=== PATIENT | male | born 1950 | race Caucasian/White ===

== ENCOUNTER 2018-08-23 05:51 | Day surgery (SDC) | payer MEDICARE, OTHER ==
[2018-08-23] MEDS ORDERED: Ketamine HCl 50 MG/ML IV ONE (05:52)
[2018-08-23] MEDS ORDERED: DIPRIVAN 200 MG/20 ML IV ONE (05:52)
[2018-08-23] MEDS ORDERED: Lactated Ringers 1,000 ML IV SCH (06:00)
[2018-08-23 10:02] VITALS: BP 124/84; PULSE 65; O2SAT 95
--- NOTE | 2018-08-23 10:09 | OP ---
SURGERY DATE/TIME: 08/23/201810 PREOPERATIVE DIAGNOSIS: Gastroesophageal reflux. POSTOPERATIVE DIAGNOSES: 1) Hiatal hernia. 2) Mild gastritis. PROCEDURE: Esophagogastroduodenoscopy with biopsy. SURGEON: Dr. Salazar. ANESTHESIA: MAC. Medications were given by the anesthesia department. BRIEF HISTORY: The patient is a 67 year old white male patient with a long history of reflux. The patient was felt the need to have endoscopic evaluation. He was appraised of the risks of the procedure including the risk of perforation, phlebitis, untoward reaction to medication, bleeding and missed lesions. The patient verbalized his understanding and desired to have the procedure performed. DESCRIPTION OF PROCEDURE: The patient was given the medications by the anesthesia department. He had continuous pulse oximetry, ECG monitoring, intermittent blood pressure monitoring and tidal CO2 monitoring during the examination. He was placed in the left lateral decubitus position. A bite block was placed and the flexible Olympus gastroscope was used to intubate the oropharynx. A view of the larynx was obtained and was normal. The scope was easily passed in the esophagus where there appeared to be a small hiatal hernia in the distal esophagus. The stomach was entered and the gastric green was suctioned dry and the stomach was re-insufflated. The gastric rugal folds distended nicely with insufflation of air. The scope was passed along the greater curvature of the stomach to the antrum. The pylorus was encountered and intubated. Duodenum inspected and found to be normal. The scope withdrawn towards the stomach. Again, a retroflex view was obtained of the lesser curvature, fundus and cardia regions of the stomach and there again was noted the hiatal hernia. The scope was then redirected towards the gastric antrum and biopsies were obtained to rule out the presence of Helicobacter pylori-type organisms. The scope was then removed from the patient who tolerated the procedure well and was sent back to outpatient recovery in good condition.
== END 2018-08-23 09:50 | disposition home or self-care (01) ==
LOC: SDC 05:51
PROVIDERS: ATTEND Family Medicine
DX: K44.9 Diaphragmatic hernia without obstruction or gangrene (principal); K29.70 Gastritis, unspecified, without bleeding; K21.9 Gastro-esophageal reflux disease without esophagitis; I10 Essential (primary) hypertension
CPT/HCPCS: 88305; 94250; J2704

== ENCOUNTER 2019-01-22 13:35 | Emergency (ER) | payer MEDICARE, OTHER ==
[2019-01-22] MEDS ORDERED: Sodium Chloride 0.9% 1000 ML 1,000 ML IV STA ×2 (14:07→15:01)
[2019-01-22] MEDS ORDERED: Zofran 4 MG/2 ML VIAL IV ONE (14:07)
--- NOTE | 2019-01-22 14:18 | ERPHSYRPT ---
- History of Present Illness Time Seen by Provider: 01/22/19 14:16 Source: patient Exam Limitations: no limitations Patient Subjective Stated Complaint: "I have been vomitng and having diarrhea since about 0700 this am". Triage Nursing Assessment: Pt presents aaox3, color somewhat pale, resp easy, lungs clear, c/o vomiting and diarrhea with several episodes each since 0700 this am. Also c/o mid abd pain/cramping. Bowel sounds auscultated, no edema to extremeties. Physician History: "I have been vomitng and having diarrhea since about 0700 this am". Timing/Duration: today Severity: moderate Associated Symptoms: nausea, vomiting, weakness Allergies/Adverse Reactions: acetaminophen [From [place]] Allergy (Verified 08/23/18 06:17) atovaquone [From [place]] Allergy (Verified 08/23/18 06:17) Bisphosphonates Allergy (Verified 08/23/18 06:17) codeine Allergy (Verified 08/23/18 06:17) hydrocodone [From [place]] Allergy (Verified 08/23/18 06:17) proguanil [From [place]] Allergy (Verified 08/23/18 06:17) Home Medications: Hydroxychloroquine Sulfate [Plaquenil] 200 mg DAILY 01/25/14 [History] Omeprazole [Prilosec] 20 mg DAILY 01/25/14 [History] Allopurinol 100 mg [Zyloprim 100 mg] 100 mg PO BID 08/22/18 [History] Aspirin EC 81 mg [Ecotrin 81 mg] 81 mg PO DAILY 08/22/18 [History] Atorvastatin Calcium [Lipitor 40Mg] 20 mg PO DAILY 08/22/18 [History] Carvedilol 3.125 mg [Coreg 3.125 MG] 3.125 mg PO BID 08/22/18 [History] Levothyroxine Sodium 100 Mcg [Synthroid 100 Mcg] 100 mcg PO DAILY 08/22/18 [History] Losartan/Hydrochlorothiazide [Losartan-Hctz 50-12.5 mg Tab] 1 each PO DAILY [History] Hx Influenza Vaccination/Date Given: Yes Hx Pneumococcal Vaccination/Date Given: Yes (UNKNOWN) - Review of Systems Constitutional: Weakness, No Fever, No Chills Eyes: No Symptoms Ears, Nose, & Throat: No Symptoms Respiratory: No Cough, No Dyspnea Cardiac: No Chest Pain, No Edema, No Syncope Abdominal/Gastrointestinal: Nausea, Vomiting, Diarrhea, No Abdominal Pain Genitourinary Symptoms: No Dysuria Musculoskeletal: No Back Pain, No Neck Pain Skin: No Rash Neurological: No Dizziness, No Focal Weakness, No Sensory Changes Psychological: No Symptoms Endocrine: No Symptoms All Other Systems: Reviewed and Negative - Past Medical History Pertinent Past Medical History: Yes Neurological History: No Pertinent History ENT History: No Pertinent History Cardiac History: Hypertension Respiratory History: No Pertinent History Endocrine Medical History: Hypothyroidism Musculoskeletal History: Arthritis, Other GI Medical History: GERD History: No Pertinent History Psycho-Social History: No Pertinent History Male Reproductive Disorders: No Pertinent History Other Medical History: CONECTIVE TISSUE DISEASE,gout, - Past Surgical History Past Surgical History: Yes Neuro Surgical History: No Pertinent History Cardiac: No Pertinent History Respiratory: No Pertinent History Gastrointestinal: Cholecystectomy, Hernia Repair Genitourinary: No Pertinent History Musculoskeletal: Orthopedic Surgery Male Surgical History: No Pertinent History Other Surgical History: c3 neck surgery - Social History Smoking Status: Never smoker Exposure to second hand smoke: No Drug Use: none Patient Lives Alone: No - Nursing Vital Signs Nursing Vital Signs: Initial Vital Signs Temperature 98.7 F 01/22/19 13:46 Pulse Rate 100 H 01/22/19 13:46 Respiratory Rate 18 01/22/19 13:46 Blood Pressure 128/91 01/22/19 13:46 O2 Sat by Pulse Oximetry 98 01/22/19 13:46 Pain Scale Pain Intensity 5 - Physical Exam General Appearance: mild distress, alert Eye Exam: PERRL/EOMI, eyes nml inspection Ears, Nose, Throat Exam: normal ENT inspection, TMs normal, pharynx normal, moist mucous membranes Neck Exam: normal inspection, non-tender, supple, full range of motion Respiratory Exam: normal breath sounds, lungs clear, No respiratory distress Cardiovascular Exam: regular rate/rhythm, normal heart sounds, normal peripheral pulses Gastrointestinal/Abdomen Exam: soft, normal bowel sounds, No tenderness, No mass Back Exam: normal inspection, normal range of motion, No CVA tenderness, No vertebral tenderness Extremity Exam: normal inspection, normal range of motion, pelvis stable Neurologic Exam: alert, oriented x 3, cooperative, normal mood/affect, nml cerebellar function, nml station & gait, sensation nml, No motor deficits Skin Exam: normal color, warm, dry, No rash Lymphatic Exam: No adenopathy SpO2: 98 - Course Nursing assessment & vital signs reviewed: Yes Ordered Tests: Active Orders 24 hr Category Date Time Status AMYLASE Stat Lab 01/22/19 14:21 Completed CBC W DIFF Stat Lab 01/22/19 14:21 Completed CMP Stat Lab 01/22/19 14:21 Completed LIPASE Stat Lab 01/22/19 14:21 Completed Lactic Acid Stat Lab 01/22/19 14:07 Completed UA W/RFX UR CULTURE Stat Lab 01/22/19 15:39 Completed Medication Summary Discontinued Medications Generic Name Dose Route Start Last Admin Trade Name Freq PRN Reason Stop Dose Admin Sodium Chloride 1,000 mls @ 999 mls/hr 01/22/19 14:07 01/22/19 15:40 Sodium Chloride 0.9% 1000 Ml IV 01/22/19 15:07 Infused .Q1H1M STA Infusion Sodium Chloride Confirm 01/22/19 14:26 Sodium Chloride 0.9% 1000 Ml Administered 01/22/19 14:27 Dose 1,000 mls @ ud .ROUTE .STK-MED ONE Sodium Chloride 1,000 mls @ 999 mls/hr 01/22/19 15:01 01/22/19 15:29 Sodium Chloride 0.9% 1000 Ml IV 01/22/19 16:01 999 mls/hr .Q1H1M STA Administration Sodium Chloride Confirm 01/22/19 15:28 Sodium Chloride 0.9% 1000 Ml Administered 01/22/19 15:29 Dose 1,000 mls @ ud .ROUTE .STK-MED ONE Ondansetron HCl 4 mg 01/22/19 14:07 01/22/19 14:30 Zofran 4 Mg/2 Ml Vial IV 01/22/19 14:08 4 mg STAT ONE Administration Ondansetron HCl Confirm 01/22/19 14:25 Zofran 4 Mg/2 Ml Vial Administered 01/22/19 14:26 Dose 4 mg .ROUTE .STK-MED ONE Lab/Rad Data: Laboratory Result Diagrams 01/22/19 14:21 01/22/19 14:21 Laboratory Results 01/22/19 01/22/19 01/22/19 Range/Units 15:39 14:21 14:21 WBC 11.0 H (4.0-10.5) K/mm3 RBC 5.78 H (4.1-5.6) M/mm3 Hgb 17.7 (12.5-18.0) gm/dl Hct 51.1 H (42-50) % MCV 88.4 (78-100) fl MCH 30.6 (26-32) pg MCHC 34.6 (32-36) g/dl RDW 15.3 H (11.5-14.0) % Plt Count 213 (150-450) K/mm3 MPV 11.6 H (6-9.5) fl Gran % 88.6 H (36.0-66.0) % Eos # (Auto) 0.10 (0-0.5) Absolute Lymphs (auto) 0.63 L (1.0-4.6) Absolute Monos (auto) 0.52 (0.0-1.3) Lymphocytes % 5.7 L (24.0-44.0) % Monocytes % 4.7 (0.0-12.0) % Eosinophils % 0.9 (0.00-5.0) % Basophils % 0.1 (0.0-0.4) % Absolute Granulocytes 9.74 H (1.4-6.9) Basophils # 0.01 (0-0.4) Sodium 140 (137-145) mmol/L Potassium 5.0 (3.5-5.1) mmol/L Chloride 105 (98-107) mmol/L Carbon Dioxide 26 (22-30) mmol/L Anion Gap 14.0 (5-15) MEQ/L BUN 24 H (9-20) mg/dL Creatinine 1.17 (0.66-1.25) mg/dL Estimated GFR > 60.0 ML/MIN Glucose 116 H (74-106) mg/dL Lactic Acid (0.4-2.0) Calcium 9.8 (8.4-10.2) mg/dL Total Bilirubin 1.50 H (0.2-1.3) mg/dL AST 40 (17-59) U/L ALT 51 H (0-50) U/L Alkaline Phosphatase 140 H (38-126) U/L Serum Total Protein 8.5 H (6.3-8.2) g/dL Albumin 4.8 (3.5-5.0) g/dL Amylase 158 H (30-110) U/L Lipase 130 (23-300) U/L Urine Color YELLOW (YELLOW) Urine Appearance CLEAR (CLEAR) Urine pH 5.0 (5-6) Ur Specific [place] 1.017 (1.005-1.025) Urine Protein NEGATIVE (Negative) Urine Ketones TRACE (NEGATIVE) Urine Blood NEGATIVE (0-5) Guillaume/ul Urine Nitrite NEGATIVE (NEGATIVE) Urine Bilirubin NEGATIVE (NEGATIVE) Urine Urobilinogen NEGATIVE (0-1) mg/dL Ur Leukocyte Esterase NEGATIVE (NEGATIVE) Urine WBC (Auto) NONE (0-5) /HPF Urine RBC (Auto) NONE (0-2) /HPF Urine Mucus (Auto) SLIGHT (NEGATIVE) /HPF Urine Culture Reflexed NO (NO) Urine Glucose NEGATIVE (NEGATIVE) mg/dL 01/22/19 Range/Units 14:07 WBC (4.0-10.5) K/mm3 RBC (4.1-5.6) M/mm3 Hgb (12.5-18.0) gm/dl Hct (42-50) % MCV (78-100) fl MCH (26-32) pg MCHC (32-36) g/dl RDW (11.5-14.0) % Plt Count (150-450) K/mm3 MPV (6-9.5) fl Gran % (36.0-66.0) % Eos # (Auto) (0-0.5) Absolute Lymphs (auto) (1.0-4.6) Absolute Monos (auto) (0.0-1.3) Lymphocytes % (24.0-44.0) % Monocytes % (0.0-12.0) % Eosinophils % (0.00-5.0) % Basophils % (0.0-0.4) % Absolute Granulocytes (1.4-6.9) Basophils # (0-0.4) Sodium (137-145) mmol/L Potassium (3.5-5.1) mmol/L Chloride (98-107) mmol/L Carbon Dioxide (22-30) mmol/L Anion Gap (5-15) MEQ/L BUN (9-20) mg/dL Creatinine (0.66-1.25) mg/dL Estimated GFR ML/MIN Glucose (74-106) mg/dL Lactic Acid 1.3 (0.4-2.0) Calcium (8.4-10.2) mg/dL Total Bilirubin (0.2-1.3) mg/dL AST (17-59) U/L ALT (0-50) U/L Alkaline Phosphatase (38-126) U/L Serum Total Protein (6.3-8.2) g/dL Albumin (3.5-5.0) g/dL Amylase (30-110) U/L Lipase (23-300) U/L Urine Color (YELLOW) Urine Appearance (CLEAR) Urine pH (5-6) Ur Specific [place] (1.005-1.025) Urine Protein (Negative) Urine Ketones (NEGATIVE) Urine Blood (0-5) Guillaume/ul Urine Nitrite (NEGATIVE) Urine Bilirubin (NEGATIVE) Urine Urobilinogen (0-1) mg/dL Ur Leukocyte Esterase (NEGATIVE) Urine WBC (Auto) (0-5) /HPF Urine RBC (Auto) (0-2) /HPF Urine Mucus (Auto) (NEGATIVE) /HPF Urine Culture Reflexed (NO) Urine Glucose (NEGATIVE) mg/dL - Progress Progress: improved, pain not gone completely Counseled pt/family regarding: lab results, diagnosis, need for follow-up - Departure Departure Disposition: Home Clinical Impression: Gastroenteritis and colitis, viral Condition: Stable Critical Care Time: No Referrals: NICHOLAS GUERRA [Primary Care Provider] - Instructions: Viral Gastroenteritis, Adult (DC) Additional Instructions: VOMITING AND DIARRHEA 1. Take only small amounts of clear, cool liquids at frequent intervals as tolerated for the next 24-48 hours. Avoid milk products and orange juice. Clear liquids are those liquids which you can see through. 2. Pedialyte and popsicles are recommended clear liquids. 3. If the condition worsens you should contact your family physician or return to the emergency department for re-evaluation. Please follow the instructions given to you. Please take your medication as prescribed if given. If symptoms recur or get worse, come back to the emergency room if you cannot reach your primary care physician, or call your primary care physician for an appointment. Again if your symptoms get worse, come back to the emergency room. Thanks for visiting emergency room, and let us take care of you.
[2019-01-22 14:25] LABS: BASOPHIL % 0.1 % (0.0-0.4); Basophil (Absolute #) 0.01 (0-0.4); Eosinophil % 0.9 % (0.00-5.0); Granulocyte Absolute (ANC) 9.74 (1.4-6.9); Granulocytes % 88.6 % (36.0-66.0); Hematocrit 51.1 % (42-50); Hemoglobin 17.7 gm/dl (12.5-18.0); Lymphocyte (Absolute #) 0.63 (1.0-4.6); Lymphocytes % 5.7 % (24.0-44.0); Mean Cell Volume 88.4 fl (78-100); Mean Corpuscular Hemoglobin 30.6 pg (26-32); Mean Corpuscular Hgb Concent. 34.6 g/dl (32-36); Mean Platelet Volume 11.6 fl (6-9.5); Monocyte (Absolute #) 0.52 (0.0-1.3); Monocytes % 4.7 % (0.0-12.0); Platelet Count 213 K/mm3 (150-450); Red Blood Count 5.78 M/mm3 (4.1-5.6); Red Cell Distribution Width 15.3 % (11.5-14.0)
[2019-01-22] MEDS ORDERED: Zofran 4 MG/2 ML VIAL ONE (14:25)
[2019-01-22] MEDS ORDERED: Sodium Chloride 0.9% 1000 ML 1,000 ML ONE ×2 (14:26→15:28)
[2019-01-22 14:39] LABS: ALBUMIN 4.8 g/dL (3.5-5.0); ALKALINE PHOSPHATASE 140 U/L (38-126); AMYLASE 158 U/L (30-110); BLOOD UREA NITROGEN 24 mg/dL (9-20); CHLORIDE 105 mmol/L (98-107); Calcium 9.8 mg/dL (8.4-10.2); Carbon Dioxide 26 mmol/L (22-30); Creatinine 1 1.17 mg/dL (0.66-1.25); Glucose 116 mg/dL (74-106); LIPASE 130 U/L (23-300); SGOT/AST 40 U/L (17-59); SGPT/ALT 51 U/L (0-50); SODIUM 140 mmol/L (137-145); Total Protein 8.5 g/dL (6.3-8.2)
[2019-01-22 15:59] LABS: Appearance CLEAR (CLEAR); Bilirubin NEGATIVE (NEGATIVE); Blood NEGATIVE Ery/ul (0-5); Glucose NEGATIVE (NEGATIVE); Ketones TRACE (NEGATIVE); Leukocyte Esterase NEGATIVE (NEGATIVE); Mucus SLIGHT /HPF (NEGATIVE); Nitrite NEGATIVE (NEGATIVE); Protein,Urine Dip NEGATIVE (Negative); Specific Gravity 1.017 (1.005-1.025); Urobilinogen NEGATIVE mg/dL (0-1)
[2019-01-22 16:42] VITALS: BP 111/80; PULSE 92; O2SAT 99
== END 2019-01-22 16:47 | disposition home or self-care (01) ==
LOC: ED 13:35
DX: A08.4 Viral intestinal infection, unspecified (principal); Z79.899 Other long term (current) drug therapy; E03.9 Hypothyroidism, unspecified; M19.90 Unspecified osteoarthritis, unspecified site; K21.9 Gastro-esophageal reflux disease without esophagitis
CPT/HCPCS: 36415; 80053; 81001; 82150; 83605; 83690; 85025; 96360; 96374; 99284; J2405

== ENCOUNTER 2024-02-24 16:56 | Inpatient (IN) | payer MEDICARE, OTHER ==
--- NOTE | 2024-02-24 17:45 | ERPHSYRPT ---
- History of Present Illness Time Seen by Provider: 02/24/24 17:01 Source: patient, family Exam Limitations: no limitations Patient Subjective Stated Complaint: pt states he thinks he has a UTI and fever Triage Nursing Assessment: pt ambulated into the er; pt is axo x4; c/o urination difficulties; pt denies pain; skin hot, dry, and pink; no respiratory distress present; active bowel sounds in all quads; c/o nausea; denies vomiting, diarrhea; tachycardic Physician History: 73-year-old male with history of hypertension, recurrent UTI, urinary retention needing self cath presented in the ER with complains of fever chills, body aches along with nausea and some abdominal discomfort since morning. Patient reports mild to moderate abdominal cramping all over with nausea but no vomiting. No constipation or diarrhea reported. Patient concerned about being septic from UTI. No known sick contact. Denies any cough difficulty breathing or chest pain. No URI symptoms. Patient reports fever of 102 prior to arrival and has taken couple of Tylenol's and currently 100.6. Allergies/Adverse Reactions: acetaminophen [From [place]] Allergy (Verified 02/24/24 17:17) atovaquone [From [place]] Allergy (Verified 02/24/24 17:17) Bisphosphonates Allergy (Verified 02/24/24 17:17) codeine Allergy (Verified 02/24/24 17:17) hydrocodone [From [place]] Allergy (Verified 02/24/24 17:17) proguanil [From [place]] Allergy (Verified 02/24/24 17:17) Home Medications: Hydroxychloroquine Sulfate [Plaquenil] 200 mg DAILY 01/25/14 [History] Omeprazole [Prilosec] 20 mg DAILY 01/25/14 [History] Aspirin EC 81 mg [Ecotrin 81 mg] 81 mg PO DAILY 08/22/18 [History] Atorvastatin Calcium [Lipitor 40Mg] 10 mg PO DAILY 08/22/18 [History] Levothyroxine Sodium 100 Mcg [Synthroid 100 Mcg] 100 mcg PO DAILY 08/22/18 [History] Losartan/Hydrochlorothiazide [Losartan-Hctz 50-12.5 mg Tab] 1 each PO DAILY 08/22/18 [History] Amlodipine Besylate [Norvasc] 2.5 mg PO DAILY 02/24/24 [History] Hx Tetanus, Diphtheria Vaccination/Date Given: No Hx Influenza Vaccination/Date Given: Yes Hx Pneumococcal Vaccination/Date Given: No Travel Risk - International Travel Have you traveled outside of the country in past 3 weeks: No - Emerging Infectious Disease Are you exhibiting symptoms associated with any current EIDs: No - Review of Systems Constitutional: Fever, Chills, Fatigue, Weakness Eyes: No Symptoms Ears, Nose, & Throat: No Symptoms Respiratory: No Symptoms Cardiac: No Symptoms Abdominal/Gastrointestinal: Abdominal Pain, Nausea Genitourinary Symptoms: Urinary Retention Musculoskeletal: Myalgias Skin: No Symptoms Neurological: No Symptoms Psychological: No Symptoms Endocrine: No Symptoms Hematologic/Lymphatic: No Symptoms Immunological/Allergic: No Symptoms - Past Medical History Pertinent Past Medical History: Yes Neurological History: No Pertinent History ENT History: No Pertinent History Cardiac History: Hypertension Respiratory History: No Pertinent History Endocrine Medical History: Hypothyroidism Musculoskeletal History: Arthritis, Other GI Medical History: GERD History: No Pertinent History Psycho-Social History: No Pertinent History Male Reproductive Disorders: No Pertinent History Other Medical History: CONECTIVE TISSUE DISEASE,gout, - Past Surgical History Past Surgical History: Yes Neuro Surgical History: No Pertinent History Cardiac: No Pertinent History Respiratory: No Pertinent History Gastrointestinal: Cholecystectomy, Hernia Repair Genitourinary: No Pertinent History Musculoskeletal: Orthopedic Surgery Male Surgical History: No Pertinent History Other Surgical History: c3 neck surgery - Social History Smoking Status: Never smoker Exposure to second hand smoke: No Drug Use: none Patient Lives Alone: No - Nursing Vital Signs Nursing Vital Signs: Initial Vital Signs Temperature 100.6 F 02/24/24 17:22 Pulse Rate 121 H 02/24/24 17:22 Respiratory Rate 18 02/24/24 17:22 Blood Pressure 157/97 02/24/24 17:22 O2 Sat by Pulse Oximetry 96 02/24/24 17:22 Pain Scale Pain Intensity 0 - Physical Exam General Appearance: no apparent distress, alert Eye Exam: PERRL/EOMI ENT Exam: normal ENT inspection, no apparent trauma, hearing grossly normal Neck Exam: normal inspection, supple, full range of motion Respiratory Exam: normal breath sounds, chest non-tender Cardiovascular/Chest Exam: normal heart sounds, tachycardia Gastrointestinal/Abdominal Exam: soft, no distention, no guarding, normal bowel sounds, tenderness (Mild generalized tenderness) Extremity Exam: non-tender, normal range of motion Neurologic Exam: alert, oriented x 3, cooperative, organizational effectiveness consultant II-XII nml as tested Skin Exam: normal color SpO2 Interpretation: normal SpO2: 96 O2 Delivery: Room Air Ordered Tests: Active Orders 24 hr Category Date Time Status IV Insertion STAT Care 02/24/24 17:41 Active NPO (ED) STAT Care 02/24/24 17:41 Active ABDOMEN AND PELVIS W/0 CONTRAS [CT] Stat Exams 02/24/24 17:42 Taken BLOOD CULTURE Stat Lab 02/24/24 18:23 Ordered CBC W DIFF Stat Lab 02/24/24 18:23 Completed CMP Stat Lab 02/24/24 18:23 Completed CULTURE,URINE Stat Lab 02/24/24 18:18 Received LIPASE Stat Lab 02/24/24 18:23 Completed Lactic Acid Stat Lab 02/24/24 18:15 Completed PROCALCITONIN Stat Lab 02/24/24 18:23 Completed UA W/RFX UR CULTURE Stat Lab 02/24/24 18:18 Completed Medication Summary Generic Name Dose Route Start Last Admin Trade Name Freq PRN Reason Stop Dose Admin Ceftriaxone Sodium 2 gm in 100 mls @ 200 mls/hr 02/24/24 18:53 02/24/24 19:11 Rocephin 2 Gm/100 Ml Nacl IV 02/24/24 19:22 200 ml/hr STAT ONE 200 mls/hr Administration Discontinued Medications Generic Name Dose Route Start Last Admin Trade Name Freq PRN Reason Stop Dose Admin Sodium Chloride 1,000 mls @ 999 mls/hr 02/24/24 17:41 02/24/24 18:32 Sodium Chloride 0.9% 1000 Ml IV 02/24/24 18:41 999 mls/hr .Q1H1M STA Administration Sodium Chloride Confirm 02/24/24 18:31 Sodium Chloride 0.9% 1000 Ml Administered 02/24/24 18:32 Dose 1,000 mls @ ud .ROUTE .STK-MED ONE Ceftriaxone Sodium Confirm 02/24/24 19:01 Rocephin 2 Gm/100 Ml Nacl Administered 02/24/24 19:02 Dose 2 gm in 100 mls @ ud IV .STK-MED ONE Ondansetron HCl 4 mg 02/24/24 17:41 02/24/24 18:31 Ondansetron Hcl 4 Mg/2 Ml Vial IV 02/24/24 17:42 4 mg STAT ONE Administration Ondansetron HCl Confirm 02/24/24 18:31 Ondansetron Hcl 4 Mg/2 Ml Vial Administered 02/24/24 18:32 Dose 4 mg .ROUTE .STK-MED ONE Lab/Rad Data: Laboratory Result Diagrams 02/24/24 18:23 02/24/24 18:23 Laboratory Results 02/24/24 02/24/24 02/24/24 Range/Units 18:23 18:23 18:23 WBC (4.0-10.5) x10^3/uL RBC (4.1-5.6) x10^6/uL Hgb (12.5-18.0) g/dL Hct (42-50) % MCV (78-100) fL MCH (26-32) pg MCHC (32-36) g/dL RDW (11.5-14.0) % Plt Count (150-450) x10^3/uL MPV (7.5-11.0) fL Gran % (36.0-66.0) % Immature Gran % (Auto) (0.00-0.4) % Nucleat RBC Rel Count (0.00-0.1) % Eos # (Auto) (0-0.5) x10^3/uL Immature Gran # (Auto) (0.00-0.03) x10^3u/L Absolute Lymphs (auto) (1.0-4.6) x10^3/uL Absolute Monos (auto) (0.0-1.3) x10^3/uL Absolute Nucleated RBC (0.00-0.01) x10^3u/L Lymphocytes % (24.0-44.0) % Monocytes % (0.0-12.0) % Eosinophils % (0.00-5.0) % Basophils % (0.0-0.4) % Absolute Granulocytes (1.4-6.9) x10^3/uL Basophils # (0-0.4) x10^3/uL Sodium 141 (135-145) mmol/L Potassium 3.7 (3.5-5.1) mmol/L Chloride 107 (98-107) mmol/L Carbon Dioxide 25 (22-30) mmol/L Anion Gap 12.9 (5-15) MEQ/L BUN 18 (9-20) mg/dL Creatinine 1.16 (0.66-1.25) mg/dL Estimated GFR 66.5 ML/MIN Glucose 107 H (74-106) mg/dL Lactic Acid (0.4-2.0) Calcium 9.3 (8.4-10.2) mg/dL Total Bilirubin 1.60 H (0.2-1.3) mg/dL AST 31 (17-59) U/L ALT 27 (0-50) U/L Alkaline Phosphatase 93 (38-126) U/L Serum Total Protein 7.5 (6.3-8.2) g/dL Albumin 4.4 (3.5-5.0) g/dL Lipase 74 (23-300) U/L Procalcitonin 0.336 H (0.030-0.080) ng/mL Urine Color (Yellow) Urine Appearance (Clear) Urine pH (4.6-8.0) Ur Specific [place] (1.005-1.030) Urine Protein (Negative) Urine Glucose (UA) (Negative) mg/dL Urine Ketones (Negative) Urine Blood (Negative) Urine Nitrite (Negative) Urine Bilirubin (Negative) Urine Urobilinogen (0.2) mg/dL Ur Leukocyte Esterase (Negative) U Hyaline Cast (Auto) (0-2) /LPF Urine Microscopic RBC (0-5) /HPF Urine Microscopic WBC (0-5) /HPF Ur Epithelial Cells (None Seen) /HPF Urine Bacteria (None Seen) /HPF Urine Culture Reflexed (NO) Influenza Type A Ag NEGATIVE (NEGATIVE) Influenza Type B Ag NEGATIVE (NEGATIVE) RSV (PCR) NEGATIVE (NEGATIVE) SARS-CoV-2 (PCR) NEGATIVE (NEGATIVE) 02/24/24 02/24/24 02/24/24 Range/Units 18:23 18:18 18:15 WBC 10.3 (4.0-10.5) x10^3/uL RBC 5.10 (4.1-5.6) x10^6/uL Hgb 14.0 (12.5-18.0) g/dL Hct 43.2 (42-50) % MCV 84.7 (78-100) fL MCH 27.5 (26-32) pg MCHC 32.4 (32-36) g/dL RDW 14.8 H (11.5-14.0) % Plt Count 202 (150-450) x10^3/uL MPV 11.1 H (7.5-11.0) fL Gran % 95.2 H (36.0-66.0) % Immature Gran % (Auto) 0.3 (0.00-0.4) % Nucleat RBC Rel Count 0.0 (0.00-0.1) % Eos # (Auto) 0.01 (0-0.5) x10^3/uL Immature Gran # (Auto) 0.03 (0.00-0.03) x10^3u/L Absolute Lymphs (auto) 0.37 L (1.0-4.6) x10^3/uL Absolute Monos (auto) 0.06 (0.0-1.3) x10^3/uL Absolute Nucleated RBC 0.00 (0.00-0.01) x10^3u/L Lymphocytes % 3.6 L (24.0-44.0) % Monocytes % 0.6 (0.0-12.0) % Eosinophils % 0.1 (0.00-5.0) % Basophils % 0.2 (0.0-0.4) % Absolute Granulocytes 9.81 H (1.4-6.9) x10^3/uL Basophils # 0.02 (0-0.4) x10^3/uL Sodium (135-145) mmol/L Potassium (3.5-5.1) mmol/L Chloride (98-107) mmol/L Carbon Dioxide (22-30) mmol/L Anion Gap (5-15) MEQ/L BUN (9-20) mg/dL Creatinine (0.66-1.25) mg/dL Estimated GFR ML/MIN Glucose (74-106) mg/dL Lactic Acid 1.7 (0.4-2.0) Calcium (8.4-10.2) mg/dL Total Bilirubin (0.2-1.3) mg/dL AST (17-59) U/L ALT (0-50) U/L Alkaline Phosphatase (38-126) U/L Serum Total Protein (6.3-8.2) g/dL Albumin (3.5-5.0) g/dL Lipase (23-300) U/L Procalcitonin (0.030-0.080) ng/mL Urine Color Yellow (Yellow) Urine Appearance Clear (Clear) Urine pH 5.5 (4.6-8.0) Ur Specific [place] 1.015 (1.005-1.030) Urine Protein Negative (Negative) Urine Glucose (UA) Negative (Negative) mg/dL Urine Ketones Negative (Negative) Urine Blood Negative (Negative) Urine Nitrite Positive A (Negative) Urine Bilirubin Negative (Negative) Urine Urobilinogen 0.2 (0.2) mg/dL Ur Leukocyte Esterase Moderate A (Negative) U Hyaline Cast (Auto) NONE SEEN (0-2) /LPF Urine Microscopic RBC 0-2 (0-5) /HPF Urine Microscopic WBC 21-50 A (0-5) /HPF Ur Epithelial Cells None Seen (None Seen) /HPF Urine Bacteria Many A (None Seen) /HPF Urine Culture Reflexed YES (NO) Influenza Type A Ag (NEGATIVE) Influenza Type B Ag (NEGATIVE) RSV (PCR) (NEGATIVE) SARS-CoV-2 (PCR) (NEGATIVE) - Progress Progress: improved Progress Note: 02/24/24 19:20 73-year-old is evaluated for fever chills with some abdominal discomfort. P atient is tachycardic on presentation, given fluid bolus. He already have Tylenol 1000 mg prior to arrival and his temperature is improving. Has minimal generalized tenderness all over her abdomen. Workup showed normal white count and lactate, chemistries fairly unremarkable, procalcitonin of 0.33 with urinalysis consistent with UTI positive nitrites leukocyte esterase and WBC. He is given a dose of IV Rocephin. CT abdomen pelvis negative for any acute abdominal pelvic findings per preliminary report, official report is pending. Questionable airspace disease in the lower bases but patient is not having any difficulty breathing, cough and is on room air around mid 90s. I believe patien t has UTI sepsis and would benefit with IV antibiotics. I have discussed the results of workup with patient and family, recommended observation admission which they understand and agree. I have discussed with Dr. Gomez, reviewed history, workup and patient is being admitted. Discussed with Dr.: Other (Dr. Gomez hospitalist) Counseled pt/family regarding: lab results, diagnosis, rad results Medical Desision Making - Discussion of managment Care discussed with:: hospitalist Reviewed:: Test results Agreed on:: Treatment plan Will see patient: in hospital - Diagnostic Testing Diagnostic test were ordered, analyzed, and reviewed by me: Yes Radiological Interpretation: Reviewed by me, Teleradiologist Report - Risk of complications The pt has a high risk of morbidity or mortality based on: Decision regarding hospitilization or escalation of hosp level of care - Departure Departure Disposition: Observation Clinical Impression: Sepsis secondary to UTI Condition: Stable Critical Care Time: No Referrals: CARMEN BRIONES MD [Primary Care Provider] - Follow up/PCP as directed
[2024-02-24 18:26] LABS: Absolute Neutrophil Ct (ANC) 9.81 x10^3/uL (1.4-6.9); BASOPHIL % 0.2 % (0.0-0.4); Basophil (Absolute #) 0.02 x10^3/uL (0-0.4); Eosinophil % 0.1 % (0.00-5.0); Eosinophil (Absolute #) 0.01 x10^3/uL (0-0.5); Hematocrit 43.2 % (42-50); IMMATURE GRAN # 0.03 x10^3u/L (0.00-0.03); IMMATURE GRAN % 0.3 % (0.00-0.4); Lymphocyte (Absolute #) 0.37 x10^3/uL (1.0-4.6); Lymphocytes % 3.6 % (24.0-44.0); Mean Cell Volume 84.7 fL (78-100); Mean Corpuscular Hemoglobin 27.5 pg (26-32); Mean Corpuscular Hgb Concent. 32.4 g/dL (32-36); Mean Platelet Volume 11.1 fL (7.5-11.0); Monocyte (Absolute #) 0.06 x10^3/uL (0.0-1.3); Monocytes % 0.6 % (0.0-12.0); Neutrophil % 95.2 % (36.0-66.0); Platelet Count 202 x10^3/uL (150-450); Red Cell Distribution Width 14.8 % (11.5-14.0); White Blood Count 10.3 x10^3/uL (4.0-10.5)
[2024-02-24 18:31] LABS: Appearance Clear (Clear); Bacteria Many /HPF (None Seen); Bilirubin Negative (Negative); Blood Negative (Negative); Epithelial Cells None Seen /HPF (None Seen); Glucose, Urine Negative (Negative); Hyaline Casts NONE SEEN /LPF (0-2); Ketones Negative (Negative); Leukocyte Esterase Moderate (Negative); Nitrite Positive (Negative); Ph 5.5 (4.6-8.0); Protein,Urine Dip Negative (Negative); RBC 0-2 /HPF (0-5); Specific Gravity 1.015 (1.005-1.030); Urobilinogen 0.2 mg/dL (0.2); WBC 21-50 /HPF (0-5)
[2024-02-24] MEDS ORDERED: Zofran 4 MG/2 ML VIAL ONE (18:31)
[2024-02-24] MEDS ORDERED: Sodium Chloride 0.9% 1000 ML 1,000 ML ONE (18:31)
[2024-02-24] MEDS: Zofran 4 MG/2 ML VIAL IV ONE (18:31)
[2024-02-24] MEDS: Sodium Chloride 0.9% 1000 ML 1,000 ML IV STA (18:32)
[2024-02-24 18:36] LABS: ADD URINE CULTURE? YES (NO)
[2024-02-24 18:38] LABS: ALBUMIN 4.4 g/dL (3.5-5.0); ANION GAP 12.9 MEQ/L (5-15); BILIRUBIN,TOTAL 1.6 mg/dL (0.2-1.3); Calcium 9.3 mg/dL (8.4-10.2); Creatinine 1 1.16 mg/dL (0.66-1.25); EST GLOMERULAR FILTRATION RATE 66.5 ML/MIN; Potassium 3.7 mmol/L (3.5-5.1); Total Protein 7.5 g/dL (6.3-8.2)
[2024-02-24] MEDS ORDERED: ROCEPHIN 2 GM/100 ML NACL 2 GM/100 ML IVPB IV ONE (19:01)
[2024-02-24 19:06] LABS: INFLUENZA A NEGATIVE (NEGATIVE); INFLUENZA B NEGATIVE (NEGATIVE); RESPIRATORY SYNCTIAL VIRUS NEGATIVE (NEGATIVE); SARS-CoV-2 Xpert Express NEGATIVE (NEGATIVE)
[2024-02-24] MEDS: ROCEPHIN 2 GM/100 ML NACL 2 GM/100 ML IVPB IV ONE (19:11)
[2024-02-24] MEDS ORDERED: TYLENOL 325 MG PO PRN (22:58)
--- NOTE | 2024-02-24 23:11 | PCM.HP ---
History of Present Illness - Chief Complaint Chief Complaint: UTI Date: 02/24/24 History of Present Illness: Mr. Singer is a 73 year-old male with HTN, HLD, MCTD, recurrent UTIs, and GERD who presents with a UTI. He admits to fevers and chills for one day, and upon arrival to [place], laboratory data revealed a UTI. On my examination, the patient is doing well denying any current fevers, chills, nausea, vomiting, diarrhea, syncope, presyncope, visual changes, orthopnea, PND, odynophagia, dysphagia, chest pain, shortness of breath, belly pain, dysuria, hematuria, melena, hematochezia, or neurological changes. All other systems were reviewed and were negative. CT A/P is pending a final read. - Review of Systems Constitutional: No Fever, No Chills Eyes: No Symptoms Ears, Nose, & Throat: No Symptoms Respiratory: No Cough, No Short Of Breath Cardiac: No Chest Pain, No Edema, No Syncope Abdominal/Gastrointestinal: No Abdominal Pain, No Nausea, No Vomiting, No Diarrhea Genitourinary Symptoms: No Dysuria Musculoskeletal: No Back Pain, No Neck Pain Skin: No Rash Neurological: No Dizziness, No Focal Weakness, No Sensory Changes Psychological: No Symptoms Endocrine: No Symptoms Hematologic/Lymphatic: No Symptoms Immunological/Allergic: No Symptoms Medications & Allergies Home Medications: Home Medication List Hydroxychloroquine Sulfate [Plaquenil] 200 mg DAILY 01/25/14 [History Confirmed 02/24/24] Omeprazole [Prilosec] 20 mg DAILY 01/25/14 [History Confirmed 02/24/24] Aspirin EC 81 mg [Ecotrin 81 mg] 81 mg PO DAILY 08/22/18 [History Confirmed 02/24/24] Atorvastatin Calcium [Lipitor 40Mg] 10 mg PO DAILY 08/22/18 [History Confirmed 02/24/24] Levothyroxine Sodium 100 Mcg [Synthroid 100 Mcg] 100 mcg PO DAILY 08/22/18 [History Confirmed 02/24/24] Losartan/Hydrochlorothiazide [Losartan-Hctz 50-12.5 mg Tab] 1 each PO DAILY 08/22/18 [History Confirmed 02/24/24] Amlodipine Besylate [Norvasc] 2.5 mg PO DAILY 02/24/24 [History Confirmed 02/24/24] Tamsulosin HCl 0.4 mg [Flomax 0.4 MG] 0.4 mg PO BID 02/24/24 [History Confirmed 02/24/24] Allergies/Adverse Reactions: Allergies Allergy/AdvReac Type Severity Reaction Status Date / Time acetaminophen [From [place]] Allergy Verified 02/24/24 17:17 atovaquone [From [place]one] Allergy Verified 02/24/24 17:17 Bisphosphonates Allergy Verified 02/24/24 17:17 codeine Allergy Verified 02/24/24 17:17 hydrocodone [From [place]] Allergy Verified 02/24/24 17:17 proguanil [From [place]] Allergy Verified 02/24/24 17:17 - Past Medical History Past Medical History: Yes Neurological History: No Pertinent History ENT History: No Pertinent History Cardiac History: Hypertension, Myocardial Infarction ([place]) Respiratory History: No Pertinent History Endocrine Medical History: Hypothyroidism Musculoskelatal History: Other GI Medical History: Diverticulosis, GERD, Gallbladder Disease, Hernia History: No Pertinent History, Other Pyscho-Social History: No Pertinent History Male Reproductive Disorders: No Pertinent History, Other Comment: CONECTIVE TISSUE DISEASE,gout, - Past Surgical History Past Surgical History: Yes Neuro Surgical History: No Pertinent History Cardiac History: No Pertinent History Respiratory Surgery: No Pertinent History GI Surgical History: Cholecystectomy Genitourinary Surgical Hx: No Pertinent History Musculskeletal Surgical Hx: Orthopedic Surgery, Other Male Surgical History: No Pertinent History Other Surgical History: c3 neck surgery Significant Family History: no pertinent family hx - Social History Smoking Status: Never smoker Exposure to second hand smoke: No Alcohol: None Drug Use: none - Social Determinants of Health Will the patient participate in the screening: Yes Do you worry about a steady place to live?: No Do you have any problems with any of the following?: No known problems In the past 12 months,have you had to go without utilities?: No Have you or anyone in your house had to go without enough: No Transportation Issues: No Has anyone in your support network made you feel unsafe?: No Does the patient want assistance with any of the above?: No - Physical Exam Vital Signs: Vital Signs - 24 hr Temp Pulse Resp BP BP Pulse Ox 02/24/24 21:18 100.1 F 113 H 18 121/75 98 02/24/24 20:59 98 02/24/24 20:00 116 H 127/81 93 L 02/24/24 19:45 114 H 111/79 95 02/24/24 19:30 114 H 117/80 93 L 02/24/24 19:25 96 02/24/24 19:15 123/83 94 L 02/24/24 19:00 115 H 123/78 94 L 02/24/24 18:45 118/79 94 L 02/24/24 18:35 114 H 110/78 94 L 02/24/24 18:34 93 L 02/24/24 17:30 88 138/96 02/24/24 17:22 100.6 F 121 H 18 157/97 96 General Appearance: no apparent distress, alert Neurologic Exam: alert, oriented x 3, cooperative, normal mood/affect, nml cerebellar function, nml station & gait, sensation nml, No motor deficits Eye Exam: PERRL/EOMI, eyes nml inspection Ears, Nose, Throat Exam: normal ENT inspection, TMs normal, pharynx normal, moist mucous membranes Neck Exam: normal inspection, non-tender, supple, full range of motion Respiratory Exam: normal breath sounds, lungs clear, No respiratory distress Cardiovascular Exam: regular rate/rhythm, normal heart sounds, normal peripheral pulses Gastrointestinal/Abdomen Exam: soft, normal bowel sounds, No tenderness, No mass Back Exam: normal inspection, normal range of motion, No CVA tenderness, No vertebral tenderness Extremity Exam: normal inspection, normal range of motion, pelvis stable Skin Exam: normal color, warm, dry, No rash Lymphatic Exam: No adenopathy Results - Labs Lab/Micro Results: Lab Results-Last 24 Hours 02/24/24 02/24/24 02/24/24 Range/Units 18:15 18:18 18:23 WBC 10.3 (4.0-10.5) x10^3/uL RBC 5.10 (4.1-5.6) x10^6/uL Hgb 14.0 (12.5-18.0) g/dL Hct 43.2 (42-50) % MCV 84.7 (78-100) fL MCH 27.5 (26-32) pg MCHC 32.4 (32-36) g/dL RDW 14.8 H (11.5-14.0) % Plt Count 202 (150-450) x10^3/uL MPV 11.1 H (7.5-11.0) fL Gran % 95.2 H (36.0-66.0) % Immature Gran % (Auto) 0.3 (0.00-0.4) % Nucleat RBC Rel Count 0.0 (0.00-0.1) % Eos # (Auto) 0.01 (0-0.5) x10^3/uL Immature Gran # (Auto) 0.03 (0.00-0.03) x10^3u/L Absolute Lymphs (auto) 0.37 L (1.0-4.6) x10^3/uL Absolute Monos (auto) 0.06 (0.0-1.3) x10^3/uL Absolute Nucleated RBC 0.00 (0.00-0.01) x10^3u/L Lymphocytes % 3.6 L (24.0-44.0) % Monocytes % 0.6 (0.0-12.0) % Eosinophils % 0.1 (0.00-5.0) % Basophils % 0.2 (0.0-0.4) % Absolute Granulocytes 9.81 H (1.4-6.9) x10^3/uL Basophils # 0.02 (0-0.4) x10^3/uL Sodium (135-145) mmol/L Potassium (3.5-5.1) mmol/L Chloride (98-107) mmol/L Carbon Dioxide (22-30) mmol/L Anion Gap (5-15) MEQ/L BUN (9-20) mg/dL Creatinine (0.66-1.25) mg/dL Estimated GFR ML/MIN Glucose (74-106) mg/dL Lactic Acid 1.7 (0.4-2.0) Calcium (8.4-10.2) mg/dL Total Bilirubin (0.2-1.3) mg/dL AST (17-59) U/L ALT (0-50) U/L Alkaline Phosphatase (38-126) U/L Serum Total Protein (6.3-8.2) g/dL Albumin (3.5-5.0) g/dL Lipase (23-300) U/L Procalcitonin (0.030-0.080) ng/mL Urine Color Yellow (Yellow) Urine Appearance Clear (Clear) Urine pH 5.5 (4.6-8.0) Ur Specific [place] 1.015 (1.005-1.030) Urine Protein Negative (Negative) Urine Glucose (UA) Negative (Negative) mg/dL Urine Ketones Negative (Negative) Urine Blood Negative (Negative) Urine Nitrite Positive A (Negative) Urine Bilirubin Negative (Negative) Urine Urobilinogen 0.2 (0.2) mg/dL Ur Leukocyte Esterase Moderate A (Negative) U Hyaline Cast (Auto) NONE SEEN (0-2) /LPF Urine Microscopic RBC 0-2 (0-5) /HPF Urine Microscopic WBC 21-50 A (0-5) /HPF Ur Epithelial Cells None Seen (None Seen) /HPF Urine Bacteria Many A (None Seen) /HPF Urine Culture Reflexed YES (NO) Influenza Type A Ag (NEGATIVE) Influenza Type B Ag (NEGATIVE) RSV (PCR) (NEGATIVE) SARS-CoV-2 (PCR) (NEGATIVE) 02/24/24 02/24/24 02/24/24 Range/Units 18:23 18:23 18:23 WBC (4.0-10.5) x10^3/uL RBC (4.1-5.6) x10^6/uL Hgb (12.5-18.0) g/dL Hct (42-50) % MCV (78-100) fL MCH (26-32) pg MCHC (32-36) g/dL RDW (11.5-14.0) % Plt Count (150-450) x10^3/uL MPV (7.5-11.0) fL Gran % (36.0-66.0) % Immature Gran % (Auto) (0.00-0.4) % Nucleat RBC Rel Count (0.00-0.1) % Eos # (Auto) (0-0.5) x10^3/uL Immature Gran # (Auto) (0.00-0.03) x10^3u/L Absolute Lymphs (auto) (1.0-4.6) x10^3/uL Absolute Monos (auto) (0.0-1.3) x10^3/uL Absolute Nucleated RBC (0.00-0.01) x10^3u/L Lymphocytes % (24.0-44.0) % Monocytes % (0.0-12.0) % Eosinophils % (0.00-5.0) % Basophils % (0.0-0.4) % Absolute Granulocytes (1.4-6.9) x10^3/uL Basophils # (0-0.4) x10^3/uL Sodium 141 (135-145) mmol/L Potassium 3.7 (3.5-5.1) mmol/L Chloride 107 (98-107) mmol/L Carbon Dioxide 25 (22-30) mmol/L Anion Gap 12.9 (5-15) MEQ/L BUN 18 (9-20) mg/dL Creatinine 1.16 (0.66-1.25) mg/dL Estimated GFR 66.5 ML/MIN Glucose 107 H (74-106) mg/dL Lactic Acid (0.4-2.0) Calcium 9.3 (8.4-10.2) mg/dL Total Bilirubin 1.60 H (0.2-1.3) mg/dL AST 31 (17-59) U/L ALT 27 (0-50) U/L Alkaline Phosphatase 93 (38-126) U/L Serum Total Protein 7.5 (6.3-8.2) g/dL Albumin 4.4 (3.5-5.0) g/dL Lipase 74 (23-300) U/L Procalcitonin 0.336 H (0.030-0.080) ng/mL Urine Color (Yellow) Urine Appearance (Clear) Urine pH (4.6-8.0) Ur Specific [place] (1.005-1.030) Urine Protein (Negative) Urine Glucose (UA) (Negative) mg/dL Urine Ketones (Negative) Urine Blood (Negative) Urine Nitrite (Negative) Urine Bilirubin (Negative) Urine Urobilinogen (0.2) mg/dL Ur Leukocyte Esterase (Negative) U Hyaline Cast (Auto) (0-2) /LPF Urine Microscopic RBC (0-5) /HPF Urine Microscopic WBC (0-5) /HPF Ur Epithelial Cells (None Seen) /HPF Urine Bacteria (None Seen) /HPF Urine Culture Reflexed (NO) Influenza Type A Ag NEGATIVE (NEGATIVE) Influenza Type B Ag NEGATIVE (NEGATIVE) RSV (PCR) NEGATIVE (NEGATIVE) SARS-CoV-2 (PCR) NEGATIVE (NEGATIVE) Microbiology 02/24/24 17:41 Blood Culture Gram Stain - Final Blood Not Reportable - Radiology Impressions Radiology Exams & Impressions: Radiology Procedures Category Date Time Status ABDOMEN AND PELVIS W/0 CONTRAS [CT] Stat Exams 02/24/24 17:42 Taken Assessment/Plan (1) Sepsis secondary to UTI Current Visit: Yes Status: Acute Assessment & Plan: ASSESSMENT 1. Urinary Tract Infection 2. Hypertension 3. Hyperlipidemia 4. Mixed Connective Tissue Disease 5. Acute vs. Chronic Urinary Obstruction PLAN 1. Gentle fluids 2. Abx with Zosyn - has had recurrent UTI's; choosing broader coverage in case of resistance 3. Continue plaquenil for MCTD 4. Continue antihypertensives and statin 5. I/O while inpatient 6. F/U with Urology [facility] The entirety of this encounter was done via telemedicine with audio and visual. Consent was obtained for a telemedicine encounter. Pablo Gomez MD Pulmonary and Critical Care Medicine Code(s): A41.9 - SEPSIS, UNSPECIFIED ORGANISM; N39.0 - URINARY TRACT INFECTION, SITE NOT SPECIFIED Telemedicine Encounter - Telemedicine Encounter Telemedicine Encounter: The entirety of this encounter was performed via Telemedicine"
[2024-02-24] MEDS ORDERED: PIPERACILLIN/TAZOBACTAM IV ONE (23:40)
[2024-02-24] MEDS: Lactated Ringers 1,000 ML IV SCH (23:53)
[2024-02-25] MEDS ORDERED: Sodium Chloride 100ML MINI-BAG PLUS 100 ML IV ONE
[2024-02-25] MEDS: PIPERACILLIN/TAZOBACTAM 3.375 GM in Sodium Chloride 100ML MINI-BAG PLUS 100 ML IV SCH (00:11)
[2024-02-25 04:41] LABS: Absolute Neutrophil Ct (ANC) 12.77 x10^3/uL (1.4-6.9); BASOPHIL % 0.3 % (0.0-0.4); Basophil (Absolute #) 0.04 x10^3/uL (0-0.4); Eosinophil % 0.1 % (0.00-5.0); Eosinophil (Absolute #) 0.02 x10^3/uL (0-0.5); Hematocrit 37.9 % (42-50); Hemoglobin 12.2 g/dL (12.5-18.0); IMMATURE GRAN # 0.03 x10^3u/L (0.00-0.03); IMMATURE GRAN % 0.2 % (0.00-0.4); Lymphocyte (Absolute #) 0.78 x10^3/uL (1.0-4.6); Lymphocytes % 5.4 % (24.0-44.0); Mean Cell Volume 84.4 fL (78-100); Mean Corpuscular Hemoglobin 27.2 pg (26-32); Mean Corpuscular Hgb Concent. 32.2 g/dL (32-36); Mean Platelet Volume 11.4 fL (7.5-11.0); Monocyte (Absolute #) 0.74 x10^3/uL (0.0-1.3); Monocytes % 5.1 % (0.0-12.0); Neutrophil % 88.9 % (36.0-66.0); Platelet Count 198 x10^3/uL (150-450); Red Blood Count 4.49 x10^6/uL (4.1-5.6); Red Cell Distribution Width 15.4 % (11.5-14.0); White Blood Count 14.4 x10^3/uL (4.0-10.5)
[2024-02-25 05:16] LABS: ALBUMIN 3.2 g/dL (3.5-5.0); ANION GAP 10.2 MEQ/L (5-15); BILIRUBIN,TOTAL 1.5 mg/dL (0.2-1.3); Calcium 8.3 mg/dL (8.4-10.2); Creatinine 1 1.26 mg/dL (0.66-1.25); EST GLOMERULAR FILTRATION RATE 60.2 ML/MIN; Potassium 4.2 mmol/L (3.5-5.1); Total Protein 5.8 g/dL (6.3-8.2)
[2024-02-25] MEDS: ROCEPHIN 1 GM / 100 ML NaCl 1 GM/100 ML IVPB IV SCH (07:59)
[2024-02-25] MEDS: MAG-OX 400 PO ONE (08:07)
--- NOTE | 2024-02-25 08:49 | XRAY ---
Indication: Abdomen pain. Fever. UTI. Multiple contiguous axial images obtained through the abdomen and pelvis without contrast. Comparison: None Lung bases demonstrate patchy posterior right lower lobe groundglass airspace disease versus atelectasis. No effusion. Heart not enlarged with small left hilar calcified node. Mild fluid distended distal esophagus likely from gastroesophageal reflux. Noncontrasted stomach and bowel loops appear nonobstructed with normal appendix. Scattered sigmoid and lesser degree descending diverticulosis without diverticulitis. Previous cholecystectomy. A few tiny hepatic/splenic calcified granulomas. No free fluid/air. Remaining liver, pancreas, spleen, adrenal glands, kidneys, ureters, and bladder are unremarkable for noncontrast exam. Minimal scattered aortoiliac calcifications without AAA. Osseous structures intact with minimal generative changes throughout the spine and minimal dextroscoliosis centered at L3. Small fatty umbilical hernia. Impression: 1. Patchy right lower lobe groundglass airspace disease versus atelectasis. 2. Fluid distended distal esophagus. Rule out GERD. 3. Chronic findings including colonic diverticulosis, arteriosclerotic disease, chronic bony findings, fatty umbilical hernia, and old granulomatous disease.
[2024-02-25] MEDS: SYNTHROID 100 MCG PO SCH (09:07)
[2024-02-25] MEDS: Flomax 0.4 MG PO SCH (09:07)
[2024-02-25] MEDS: hydroDIURIL 25 MG PO SCH (09:08)
[2024-02-25] MEDS: NORVASC 5 MG PO SCH (09:08)
[2024-02-25] MEDS: Zocor 10MG PO SCH (09:08)
[2024-02-25] MEDS: Cozaar 50 MG PO SCH (09:08)
[2024-02-25] MEDS: ECOTRIN 81 MG PO SCH (09:08)
[2024-02-25] MEDS: TYLENOL 325 MG PO PRN ×2 (09:09→14:25)
[2024-02-25] MEDS: NON-FORMULARY ITEM PO SCH (09:10)
[2024-02-25] MEDS: ENOXAPARIN SODIUM SQ SCH (09:10)
[2024-02-25] MEDS ORDERED: NON-FORMULARY ITEM (Amlodipine Besylate [Norvasc] 2.5 MG Tablet) PO SCH (10:00)
[2024-02-25] MEDS ORDERED: NON-FORMULARY ITEM (Losartan/Hydrochlorothiazide [Losartan-Hctz 50-12.5 Mg Tab] 1 EACH Tab PO SCH (10:00)
[2024-02-25] MEDS ORDERED: NON-FORMULARY ITEM (Hydroxychloroquine Sulfate [Plaquenil] 200 MG Tablet) PO SCH (10:00)
[2024-02-25] MEDS ORDERED: LIPITOR 40MG PO SCH (10:00)
--- NOTE | 2024-02-25 12:16 | PCM.NOTE ---
Date and Time: 02/25/24 0573 Subjective Assessment: Mr. Singer is a 73 year-old male with HTN, HLD, MCTD, recurrent UTIs, and GERD. He presented to ER on 02/24/24 with UTI related sxs. He admits to fevers and chills for one day.. Laboratory data revealed a UTI. He was started on Zosyn. explains he follows Dr. Mary- urology OP and recently had a shipley which was removed 2 weeks ago. Since then he has been self cathing. Spouse explains they are awaiting PSA results completed Op with Dr. Mary. He was thought to have prostatitis thus the reason for the shipley and self cathing needs. They were recently in [place] and was dx with a UTI there that showed e-coli in the urine. He was discharged home with Bactrim. WBC is elevated today at 14.1, creat 1.26- BL normal. UC is gram negative sensitivity pending. BC x2 pending. Pt did have a temp of 99-100 last night. He denies CP, SOB, abd. pain, N/V/D. - Review of Systems Constitutional: No Fever, No Chills Eyes: No Symptoms Ears, Nose, & Throat: No Symptoms Respiratory: No Cough, No Short Of Breath Cardiac: No Chest Pain, No Edema, No Syncope Abdominal/Gastrointestinal: No Abdominal Pain, No Nausea, No Vomiting, No Diarrhea Genitourinary Symptoms: No Dysuria Musculoskeletal: No Back Pain, No Neck Pain Skin: No Rash Neurological: No Dizziness, No Focal Weakness, No Sensory Changes Psychological: No Symptoms Endocrine: No Symptoms Hematologic/Lymphatic: No Symptoms Immunological/Allergic: No Symptoms Objective Exam General Appearance: no apparent distress, alert Neurologic Exam: alert, oriented x 3, cooperative, normal mood/affect, nml cerebellar function, sensation nml, No motor deficits Skin Exam: normal color, warm, dry Eye Exam: PERRL, EOMI, eyes nml inspection Ears, Nose, Throat Exam: normal ENT inspection, pharynx normal, moist mucous membranes Neck Exam: normal inspection, non-tender, supple, full range of motion Respiratory Exam: normal breath sounds, lungs clear, No respiratory distress Cardiovascular Exam: regular rate/rhythm, normal heart sounds Gastrointestinal/Abdomen Exam: soft, No tenderness, No mass Extremity Exam: normal inspection, normal range of motion Back Exam: normal inspection, normal range of motion, No CVA tenderness, No vertebral tenderness Male Genitalia Exam: deferred Rectal Exam: deferred Objective Data Vital Signs: Vital Signs - 24 hr Temp Pulse Resp BP BP Pulse Ox 02/25/24 11:32 100.6 F 95 H 20 121/74 99 02/25/24 07:03 99.6 F 99 H 19 115/72 96 02/25/24 03:38 99.2 F 93 H 17 109/62 96 02/24/24 23:56 99.5 F 103 H 16 99/66 97 02/24/24 21:18 100.1 F 113 H 18 121/75 98 02/24/24 20:59 98 02/24/24 20:00 116 H 127/81 93 L 02/24/24 19:45 114 H 111/79 95 02/24/24 19:30 114 H 117/80 93 L 02/24/24 19:25 96 02/24/24 19:15 123/83 94 L 02/24/24 19:00 115 H 123/78 94 L 02/24/24 18:45 118/79 94 L 02/24/24 18:35 114 H 110/78 94 L 02/24/24 18:34 93 L 02/24/24 17:30 88 138/96 02/24/24 17:22 100.6 F 121 H 18 157/97 96 Pain Assessment - Last Documented Pain Intensity 0 Pain Scale Used 0-10 Pain Scale Intake and Output: Intake & Output 02/23/24 02/24/24 02/25/24 02/26/24 11:59 11:59 11:59 11:59 Intake Total 670 Output Total 550 Balance 120 Weight 75.6 kg Lab Results: Lab Results-Last 24 Hours 02/24/24 02/24/24 02/24/24 Range/Units 18:15 18:18 18:23 WBC 10.3 (4.0-10.5) x10^3/uL RBC 5.10 (4.1-5.6) x10^6/uL Hgb 14.0 (12.5-18.0) g/dL Hct 43.2 (42-50) % MCV 84.7 (78-100) fL MCH 27.5 (26-32) pg MCHC 32.4 (32-36) g/dL RDW 14.8 H (11.5-14.0) % Plt Count 202 (150-450) x10^3/uL MPV 11.1 H (7.5-11.0) fL Gran % 95.2 H (36.0-66.0) % Immature Gran % (Auto) 0.3 (0.00-0.4) % Nucleat RBC Rel Count 0.0 (0.00-0.1) % Eos # (Auto) 0.01 (0-0.5) x10^3/uL Immature Gran # (Auto) 0.03 (0.00-0.03) x10^3u/L Absolute Lymphs (auto) 0.37 L (1.0-4.6) x10^3/uL Absolute Monos (auto) 0.06 (0.0-1.3) x10^3/uL Absolute Nucleated RBC 0.00 (0.00-0.01) x10^3u/L Lymphocytes % 3.6 L (24.0-44.0) % Monocytes % 0.6 (0.0-12.0) % Eosinophils % 0.1 (0.00-5.0) % Basophils % 0.2 (0.0-0.4) % Absolute Granulocytes 9.81 H (1.4-6.9) x10^3/uL Basophils # 0.02 (0-0.4) x10^3/uL Sodium (135-145) mmol/L Potassium (3.5-5.1) mmol/L Chloride (98-107) mmol/L Carbon Dioxide (22-30) mmol/L Anion Gap (5-15) MEQ/L BUN (9-20) mg/dL Creatinine (0.66-1.25) mg/dL Estimated GFR ML/MIN Glucose (74-106) mg/dL Lactic Acid 1.7 (0.4-2.0) Calcium (8.4-10.2) mg/dL Magnesium (1.6-2.3) mg/dL Total Bilirubin (0.2-1.3) mg/dL AST (17-59) U/L ALT (0-50) U/L Alkaline Phosphatase (38-126) U/L Serum Total Protein (6.3-8.2) g/dL Albumin (3.5-5.0) g/dL Lipase (23-300) U/L Procalcitonin (0.030-0.080) ng/mL Urine Color Yellow (Yellow) Urine Appearance Clear (Clear) Urine pH 5.5 (4.6-8.0) Ur Specific [place] 1.015 (1.005-1.030) Urine Protein Negative (Negative) Urine Glucose (UA) Negative (Negative) mg/dL Urine Ketones Negative (Negative) Urine Blood Negative (Negative) Urine Nitrite Positive A (Negative) Urine Bilirubin Negative (Negative) Urine Urobilinogen 0.2 (0.2) mg/dL Ur Leukocyte Esterase Moderate A (Negative) U Hyaline Cast (Auto) NONE SEEN (0-2) /LPF Urine Microscopic RBC 0-2 (0-5) /HPF Urine Microscopic WBC 21-50 A (0-5) /HPF Ur Epithelial Cells None Seen (None Seen) /HPF Urine Bacteria Many A (None Seen) /HPF Urine Culture Reflexed YES (NO) Influenza Type A Ag (NEGATIVE) Influenza Type B Ag (NEGATIVE) RSV (PCR) (NEGATIVE) SARS-CoV-2 (PCR) (NEGATIVE) 02/24/24 02/24/24 02/24/24 Range/Units 18:23 18:23 18:23 WBC (4.0-10.5) x10^3/uL RBC (4.1-5.6) x10^6/uL Hgb (12.5-18.0) g/dL Hct (42-50) % MCV (78-100) fL MCH (26-32) pg MCHC (32-36) g/dL RDW (11.5-14.0) % Plt Count (150-450) x10^3/uL MPV (7.5-11.0) fL Gran % (36.0-66.0) % Immature Gran % (Auto) (0.00-0.4) % Nucleat RBC Rel Count (0.00-0.1) % Eos # (Auto) (0-0.5) x10^3/uL Immature Gran # (Auto) (0.00-0.03) x10^3u/L Absolute Lymphs (auto) (1.0-4.6) x10^3/uL Absolute Monos (auto) (0.0-1.3) x10^3/uL Absolute Nucleated RBC (0.00-0.01) x10^3u/L Lymphocytes % (24.0-44.0) % Monocytes % (0.0-12.0) % Eosinophils % (0.00-5.0) % Basophils % (0.0-0.4) % Absolute Granulocytes (1.4-6.9) x10^3/uL Basophils # (0-0.4) x10^3/uL Sodium 141 (135-145) mmol/L Potassium 3.7 (3.5-5.1) mmol/L Chloride 107 (98-107) mmol/L Carbon Dioxide 25 (22-30) mmol/L Anion Gap 12.9 (5-15) MEQ/L BUN 18 (9-20) mg/dL Creatinine 1.16 (0.66-1.25) mg/dL Estimated GFR 66.5 ML/MIN Glucose 107 H (74-106) mg/dL Lactic Acid (0.4-2.0) Calcium 9.3 (8.4-10.2) mg/dL Magnesium (1.6-2.3) mg/dL Total Bilirubin 1.60 H (0.2-1.3) mg/dL AST 31 (17-59) U/L ALT 27 (0-50) U/L Alkaline Phosphatase 93 (38-126) U/L Serum Total Protein 7.5 (6.3-8.2) g/dL Albumin 4.4 (3.5-5.0) g/dL Lipase 74 (23-300) U/L Procalcitonin 0.336 H (0.030-0.080) ng/mL Urine Color (Yellow) Urine Appearance (Clear) Urine pH (4.6-8.0) Ur Specific [place] (1.005-1.030) Urine Protein (Negative) Urine Glucose (UA) (Negative) mg/dL Urine Ketones (Negative) Urine Blood (Negative) Urine Nitrite (Negative) Urine Bilirubin (Negative) Urine Urobilinogen (0.2) mg/dL Ur Leukocyte Esterase (Negative) U Hyaline Cast (Auto) (0-2) /LPF Urine Microscopic RBC (0-5) /HPF Urine Microscopic WBC (0-5) /HPF Ur Epithelial Cells (None Seen) /HPF Urine Bacteria (None Seen) /HPF Urine Culture Reflexed (NO) Influenza Type A Ag NEGATIVE (NEGATIVE) Influenza Type B Ag NEGATIVE (NEGATIVE) RSV (PCR) NEGATIVE (NEGATIVE) SARS-CoV-2 (PCR) NEGATIVE (NEGATIVE) 02/25/24 02/25/24 02/25/24 Range/Units 04:33 04:33 04:33 WBC 14.4 H (4.0-10.5) x10^3/uL RBC 4.49 (4.1-5.6) x10^6/uL Hgb 12.2 L (12.5-18.0) g/dL Hct 37.9 L (42-50) % MCV 84.4 (78-100) fL MCH 27.2 (26-32) pg MCHC 32.2 (32-36) g/dL RDW 15.4 H (11.5-14.0) % Plt Count 198 (150-450) x10^3/uL MPV 11.4 H (7.5-11.0) fL Gran % 88.9 H (36.0-66.0) % Immature Gran % (Auto) 0.2 (0.00-0.4) % Nucleat RBC Rel Count 0.0 (0.00-0.1) % Eos # (Auto) 0.02 (0-0.5) x10^3/uL Immature Gran # (Auto) 0.03 (0.00-0.03) x10^3u/L Absolute Lymphs (auto) 0.78 L (1.0-4.6) x10^3/uL Absolute Monos (auto) 0.74 (0.0-1.3) x10^3/uL Absolute Nucleated RBC 0.00 (0.00-0.01) x10^3u/L Lymphocytes % 5.4 L (24.0-44.0) % Monocytes % 5.1 (0.0-12.0) % Eosinophils % 0.1 (0.00-5.0) % Basophils % 0.3 (0.0-0.4) % Absolute Granulocytes 12.77 H (1.4-6.9) x10^3/uL Basophils # 0.04 (0-0.4) x10^3/uL Sodium 140 (135-145) mmol/L Potassium 4.2 (3.5-5.1) mmol/L Chloride 109 H (98-107) mmol/L Carbon Dioxide 25 (22-30) mmol/L Anion Gap 10.2 (5-15) MEQ/L BUN 21 H (9-20) mg/dL Creatinine 1.26 H (0.66-1.25) mg/dL Estimated GFR 60.2 ML/MIN Glucose 95 (74-106) mg/dL Lactic Acid (0.4-2.0) Calcium 8.3 L (8.4-10.2) mg/dL Magnesium 1.5 L (1.6-2.3) mg/dL Total Bilirubin 1.50 H (0.2-1.3) mg/dL AST 24 (17-59) U/L ALT 23 (0-50) U/L Alkaline Phosphatase 70 (38-126) U/L Serum Total Protein 5.8 L (6.3-8.2) g/dL Albumin 3.2 L (3.5-5.0) g/dL Lipase (23-300) U/L Procalcitonin (0.030-0.080) ng/mL Urine Color (Yellow) Urine Appearance (Clear) Urine pH (4.6-8.0) Ur Specific [place] (1.005-1.030) Urine Protein (Negative) Urine Glucose (UA) (Negative) mg/dL Urine Ketones (Negative) Urine Blood (Negative) Urine Nitrite (Negative) Urine Bilirubin (Negative) Urine Urobilinogen (0.2) mg/dL Ur Leukocyte Esterase (Negative) U Hyaline Cast (Auto) (0-2) /LPF Urine Microscopic RBC (0-5) /HPF Urine Microscopic WBC (0-5) /HPF Ur Epithelial Cells (None Seen) /HPF Urine Bacteria (None Seen) /HPF Urine Culture Reflexed (NO) Influenza Type A Ag (NEGATIVE) Influenza Type B Ag (NEGATIVE) RSV (PCR) (NEGATIVE) SARS-CoV-2 (PCR) (NEGATIVE) Radiology Exams: Radiology Procedures Category Date Time Status ABDOMEN AND PELVIS W/0 CONTRAS [CT] Stat Exams 02/24/24 17:42 Completed Multi-Disciplinary Progress Notes: Multi-Disciplinary Progress Notes 02/24/24 23:39 Respiratory Note by Park Lundberg Patient's SpO2 is 96%-98% on room air. Pt is in no respiratory distress. Order for cont pulse ox d/c's. RN notified. Addendum entered by Park Lundberg 02/24/24 23:42: Pt has no resp history, takes no resp meds at home, does not use home O2 and no home PAP use. No resp interventions indicated at this time. Initialized on 02/24/24 23:39 - END OF NOTE Assessment/Plan (1) Sepsis secondary to UTI Current Visit: Yes Status: Acute Assessment & Plan: - Lactic acid on admission 02/23 1.7 - 1L IVF bolus gave in ER on admission - Ceftriaxone started in ER- changed to Zosyn IP d/t hx of complicated UTI - + confirmed infection, temp > 100.4, HR > 90, WBC 14.4 - UC gram negative- sensitivity pending - BC x2 pending Code(s): A41.9 - SEPSIS, UNSPECIFIED ORGANISM; N39.0 - URINARY TRACT INFECTION, SITE NOT SPECIFIED (2) Complicated UTI (urinary tract infection) Current Visit: Yes Status: Acute Assessment & Plan: - Hx of recent UTI with hospitalization and recent shipley - Self caths- hx of prostitis - Follow urology Op- Dr. Mary - Micaela IV - UC- gram negative- sensitivity pending Code(s): N39.0 - URINARY TRACT INFECTION, SITE NOT SPECIFIED (3) Hyperlipidemia Current Visit: Yes Status: Chronic Assessment & Plan: - Continue statin Code(s): E78.5 - HYPERLIPIDEMIA, UNSPECIFIED (4) HTN (hypertension) Current Visit: Yes Status: Chronic Assessment & Plan: - Controlled - Continue home BP meds VTE: Lovenox Next of Kin: D/C plan: 1-2 days Code status: Full Code(s): I10 - ESSENTIAL (PRIMARY) HYPERTENSION
[2024-02-25] MEDS: MOTRIN 600 MG PO PRN (12:42)
[2024-02-25] MEDS: Zofran 4 MG/2 ML VIAL IV PRN (12:43)
[2024-02-25] MEDS: Protonix 20MG Tablet PO SCH (17:18)
[2024-02-26 05:39] LABS: Hemoglobin 11.9 g/dL (12.5-18.0); Mean Cell Volume 85.1 fL (78-100); Mean Corpuscular Hemoglobin 27.4 pg (26-32); Mean Corpuscular Hgb Concent. 32.2 g/dL (32-36); Mean Platelet Volume 11.8 fL (7.5-11.0); Platelet Count 154 x10^3/uL (150-450); Red Blood Count 4.35 x10^6/uL (4.1-5.6); Red Cell Distribution Width 14.9 % (11.5-14.0); White Blood Count 7.2 x10^3/uL (4.0-10.5)
[2024-02-26 06:26] LABS: ALBUMIN 2.9 g/dL (3.5-5.0); ANION GAP 8.8 MEQ/L (5-15); BILIRUBIN,TOTAL 1.3 mg/dL (0.2-1.3); Calcium 8.1 mg/dL (8.4-10.2); Creatinine 1 1.28 mg/dL (0.66-1.25); EST GLOMERULAR FILTRATION RATE 59.1 ML/MIN; Potassium 3.7 mmol/L (3.5-5.1); Total Protein 5.6 g/dL (6.3-8.2)
--- NOTE | 2024-02-26 08:39 | PCM.DS ---
Discharge Summary Date of Admission: 02/24/24 20:58 Date of Discharge: 02/26/24 Admitting Physician: NORMA SALINAS MD Primary Care Provider: CARMEN BRIONES Allergies Allergies acetaminophen [From [place]] Allergy (Verified 02/24/24 17:17) atovaquone [From [place]] Allergy (Verified 02/24/24 17:17) Bisphosphonates Allergy (Verified 02/24/24 17:17) codeine Allergy (Verified 02/24/24 17:17) hydrocodone [From [place]] Allergy (Verified 02/24/24 17:17) proguanil [From [place]] Allergy (Verified 02/24/24 17:17) Hospital Summary - Vitals & Intake/Output Vital Signs: Vital Signs Temperature 98.0 F 02/26/24 07:00 Pulse Rate 83 02/26/24 07:00 Respiratory Rate 20 02/26/24 07:00 Blood Pressure 130/76 02/26/24 07:00 O2 Sat by Pulse Oximetry 92 L 02/26/24 07:00 Intake & Output: Intake & Output 02/23/24 02/24/24 02/25/24 02/26/24 11:59 11:59 11:59 11:59 Intake Total 670 1775 Output Total 550 1125 Balance 120 650 Weight 75.6 kg - Lab Result Diagrams: 02/26/24 05:10 02/26/24 05:10 Lab Results-Last 24 Hrs: Lab Results-Last 24 Hours 02/25/24 02/26/24 02/26/24 Range/Units 16:20 05:10 05:10 WBC 7.2 (4.0-10.5) x10^3/uL RBC 4.35 (4.1-5.6) x10^6/uL Hgb 11.9 L (12.5-18.0) g/dL Hct 37.0 L (42-50) % MCV 85.1 (78-100) fL MCH 27.4 (26-32) pg MCHC 32.2 (32-36) g/dL RDW 14.9 H (11.5-14.0) % Plt Count 154 (150-450) x10^3/uL MPV 11.8 H (7.5-11.0) fL Sodium 139 (135-145) mmol/L Potassium 3.7 (3.5-5.1) mmol/L Chloride 108 H (98-107) mmol/L Carbon Dioxide 25 (22-30) mmol/L Anion Gap 8.8 (5-15) MEQ/L BUN 23 H (9-20) mg/dL Creatinine 1.28 H (0.66-1.25) mg/dL Estimated GFR 59.1 ML/MIN Glucose 90 (74-106) mg/dL Lactic Acid 1.0 (0.4-2.0) Calcium 8.1 L (8.4-10.2) mg/dL Magnesium (1.6-2.3) mg/dL Total Bilirubin 1.30 (0.2-1.3) mg/dL AST 25 (17-59) U/L ALT 22 (0-50) U/L Alkaline Phosphatase 66 (38-126) U/L Serum Total Protein 5.6 L (6.3-8.2) g/dL Albumin 2.9 L (3.5-5.0) g/dL 02/26/24 02/26/24 Range/Units 05:10 05:25 WBC (4.0-10.5) x10^3/uL RBC (4.1-5.6) x10^6/uL Hgb (12.5-18.0) g/dL Hct (42-50) % MCV (78-100) fL MCH (26-32) pg MCHC (32-36) g/dL RDW (11.5-14.0) % Plt Count (150-450) x10^3/uL MPV (7.5-11.0) fL Sodium (135-145) mmol/L Potassium (3.5-5.1) mmol/L Chloride (98-107) mmol/L Carbon Dioxide (22-30) mmol/L Anion Gap (5-15) MEQ/L BUN (9-20) mg/dL Creatinine (0.66-1.25) mg/dL Estimated GFR ML/MIN Glucose (74-106) mg/dL Lactic Acid 1.1 (0.4-2.0) Calcium (8.4-10.2) mg/dL Magnesium 1.7 (1.6-2.3) mg/dL Total Bilirubin (0.2-1.3) mg/dL AST (17-59) U/L ALT (0-50) U/L Alkaline Phosphatase (38-126) U/L Serum Total Protein (6.3-8.2) g/dL Albumin (3.5-5.0) g/dL Micro Results-Entire Visit: Microbiology 02/24/24 18:23 Blood Culture Gram Stain - Final Blood 02/24/24 18:18 Urine Culture - Preliminary Clean Catch Midstream GRAM NEGATIVE ID AND SENSITIVITY PENDING 02/24/24 17:41 Blood Culture Gram Stain - Final Blood Not Reportable - Radiology Exams Ordered Rad Exams-Entire Visit: Radiology Procedures Category Date Time Status ABDOMEN AND PELVIS W/0 CONTRAS [CT] Stat Exams 02/24/24 17:42 Completed Discharge Exam General Appearance: no apparent distress, alert Neurologic Exam: alert, oriented x 3, cooperative, normal mood/affect, nml cerebellar function, sensation nml, No motor deficits Eye Exam: PERRL, EOMI, eyes nml inspection Ears, Nose, Throat Exam: normal ENT inspection, pharynx normal, moist mucous membranes Neck Exam: normal inspection, non-tender, supple, full range of motion Respiratory Exam: normal breath sounds, lungs clear, No respiratory distress Cardiovascular Exam: regular rate/rhythm, normal heart sounds Gastrointestinal/Abdomen Exam: soft, No tenderness, No mass Male Genitalia Exam: deferred Rectal Exam: deferred Back Exam: normal inspection, normal range of motion, No CVA tenderness, No vertebral tenderness Extremity Exam: normal inspection, normal range of motion Skin Exam: normal color, warm, dry Final Diagnosis/Problem List - Final Discharge Diagnosis/Problem (1) Sepsis secondary to UTI Current Visit: Yes Status: Acute Assessment & Plan: Assessment & Plan: - Complicated UTI - Lactic acid on admission 02/23 1.7 - 1L IVF bolus gave in ER on admission - Ceftriaxone started in ER- changed to Zosyn IP d/t hx of complicated UTI - + confirmed infection, temp > 100.4, HR > 90, WBC 14.4 - UC gram negative- sensitivity pending - BC x2 pending - BC x1 came back gram negative- final report pending - tele - + fever 02/24 54 - no overnight fever - UC and BC final results pending - refused tele Code(s): A41.9 - SEPSIS, UNSPECIFIED ORGANISM; N39.0 - URINARY TRACT INFECTION, SITE NOT SPECIFIED (2) Complicated UTI (urinary tract infection) Current Visit: Yes Status: Acute Assessment & Plan: - Hx of recent UTI with recent hospitalization and recent shipley that was out prior to admission this visit - Self caths- hx of prostatitis - Follow urology Op- Dr. Chin - Micaela IV - UC- gram negative- sensitivity pending Code(s): N39.0 - URINARY TRACT INFECTION, SITE NOT SPECIFIED (3) Hyperlipidemia Current Visit: Yes Status: Chronic Assessment & Plan: - Continue statin Code(s): E78.5 - HYPERLIPIDEMIA, UNSPECIFIED (4) HTN (hypertension) Current Visit: Yes Status: Chronic Assessment & Plan: - Controlled - Continue home BP meds Code(s): I10 - ESSENTIAL (PRIMARY) HYPERTENSION (5) Hypomagnesemia Current Visit: Yes Status: Acute Assessment & Plan: 5/3 - Mg+ 1.5- replaced 5/4 - resolved Code(s): E83.42 - HYPOMAGNESEMIA - Discharge Discharge Date: 02/26/24 Disposition: Home, Self-Care Condition: Stable Prescriptions: New Cefuroxime Axetil 500 mg [Ceftin 500 mg] 500 mg PO BID 10 Days #20 tablet Continue Omeprazole [Prilosec] 20 mg DAILY Hydroxychloroquine Sulfate [Plaquenil] 200 mg DAILY Aspirin EC 81 mg [Ecotrin 81 mg] 81 mg PO DAILY Losartan/Hydrochlorothiazide [Losartan-Hctz 50-12.5 mg Tab] 1 each PO DAILY Levothyroxine Sodium 100 Mcg [Synthroid 100 Mcg] 100 mcg PO DAILY Atorvastatin Calcium [Lipitor 40Mg] 10 mg PO DAILY Amlodipine Besylate [Norvasc] 2.5 mg PO DAILY Tamsulosin HCl 0.4 mg [Flomax 0.4 MG] 0.4 mg PO BID Follow up with: CARMEN BRIONES MD [Primary Care Provider] - 03/06/24 2:15 pm KEILA CHIN MD [NON-STAFF PHY W/O PRIVILEGES] - 02/29/24 8:30 am (FAX CHART TO [phone])
--- NOTE | 2024-02-26 11:38 | PCM.NOTE ---
Date and Time: 02/26/24 1132 Subjective Assessment: 02/25/24 Mr. Singer is a 73 year-old male with HTN, HLD, MCTD, recurrent UTIs, and GERD. He presented to ER on 02/24/24 with UTI related sxs. He admits to fevers and chills for one day.. Laboratory data revealed a UTI. He was started on Zosyn. explains he follows Dr. Mary- urology OP and recently had a shipley which was removed 2 weeks ago. Since then he has been self cathing. Spouse explains they are awaiting PSA results completed Op with Dr. Mary. He was thought to have prostatitis thus the reason for the shipley and self cathing needs. They were recently in [place] and was dx with a UTI there that showed e-coli in the urine. He was discharged home with Bactrim. WBC is elevated today at 14.1, creat 1.26- BL normal. UC is gram negative sensitivity pending. BC x2 pending. Pt did have a temp of 99-100 last night. He denies CP, SOB, abd. pain, N/V/D. 02/26/24 Pt sitting up on the side of the bed this morning eating breakfast. He states he feels much better today. He has had no overnight fevers. BCx1 came back gram negative- final report pending. UC positive for Klebsiella oxytoca, will start levaquin in the AM., BC sensitivity pending will likely d/c tomorrow if results are back. Pt concerned about how he will react to PO antibiotics as he has had stomach upset and diarrhea in the past, therefore changed to PO meds in AM. Urine is clear yellow today. He denies CP, SOB, abd. pain, N/V/D. Will need OP f/u with Dr. Mary- Urology. - Review of Systems Constitutional: No Fever, No Chills Eyes: No Symptoms Ears, Nose, & Throat: No Symptoms Respiratory: No Cough, No Short Of Breath Cardiac: No Chest Pain, No Edema, No Syncope Abdominal/Gastrointestinal: No Abdominal Pain, No Nausea, No Vomiting, No Diarrhea Genitourinary Symptoms: No Dysuria Musculoskeletal: No Back Pain, No Neck Pain Skin: No Rash Neurological: No Dizziness, No Focal Weakness, No Sensory Changes Psychological: No Symptoms Endocrine: No Symptoms Hematologic/Lymphatic: No Symptoms Immunological/Allergic: No Symptoms Objective Exam General Appearance: no apparent distress, alert Neurologic Exam: alert, oriented x 3, cooperative, normal mood/affect, nml cerebellar function, sensation nml, No motor deficits Skin Exam: normal color, warm, dry Eye Exam: PERRL, EOMI, eyes nml inspection Ears, Nose, Throat Exam: normal ENT inspection, pharynx normal, moist mucous membranes Neck Exam: normal inspection, non-tender, supple, full range of motion Respiratory Exam: normal breath sounds, lungs clear, No respiratory distress Cardiovascular Exam: regular rate/rhythm, normal heart sounds Gastrointestinal/Abdomen Exam: soft, No tenderness, No mass Extremity Exam: normal inspection, normal range of motion Back Exam: normal inspection, normal range of motion, No CVA tenderness, No vertebral tenderness Male Genitalia Exam: deferred Rectal Exam: deferred Objective Data Vital Signs: Vital Signs - 24 hr Temp Pulse Resp BP Pulse Ox 02/26/24 07:00 98.0 F 83 20 130/76 92 L 02/26/24 03:00 98.9 F 79 16 106/74 94 L 02/25/24 23:00 98.5 F 87 16 110/67 95 02/25/24 17:17 98.2 F 02/25/24 16:50 100.0 F 103 H 20 101/63 92 L 02/25/24 15:45 101.6 F 02/25/24 15:07 104 F 02/25/24 14:04 101.9 F Pain Assessment - Last Documented Pain Intensity 3 Pain Scale Used 0-10 Pain Scale Intake and Output: Intake & Output 02/23/24 02/24/24 02/25/24 02/26/24 11:59 11:59 11:59 11:59 Intake Total 670 1775 Output Total 550 1125 Balance 120 650 Weight 75.6 kg Lab Results: Lab Results-Last 24 Hours 02/25/24 02/26/24 02/26/24 Range/Units 16:20 05:10 05:10 WBC 7.2 (4.0-10.5) x10^3/uL RBC 4.35 (4.1-5.6) x10^6/uL Hgb 11.9 L (12.5-18.0) g/dL Hct 37.0 L (42-50) % MCV 85.1 (78-100) fL MCH 27.4 (26-32) pg MCHC 32.2 (32-36) g/dL RDW 14.9 H (11.5-14.0) % Plt Count 154 (150-450) x10^3/uL MPV 11.8 H (7.5-11.0) fL Sodium 139 (135-145) mmol/L Potassium 3.7 (3.5-5.1) mmol/L Chloride 108 H (98-107) mmol/L Carbon Dioxide 25 (22-30) mmol/L Anion Gap 8.8 (5-15) MEQ/L BUN 23 H (9-20) mg/dL Creatinine 1.28 H (0.66-1.25) mg/dL Estimated GFR 59.1 ML/MIN Glucose 90 (74-106) mg/dL Lactic Acid 1.0 (0.4-2.0) Calcium 8.1 L (8.4-10.2) mg/dL Magnesium (1.6-2.3) mg/dL Total Bilirubin 1.30 (0.2-1.3) mg/dL AST 25 (17-59) U/L ALT 22 (0-50) U/L Alkaline Phosphatase 66 (38-126) U/L Serum Total Protein 5.6 L (6.3-8.2) g/dL Albumin 2.9 L (3.5-5.0) g/dL 02/26/24 02/26/24 Range/Units 05:10 05:25 WBC (4.0-10.5) x10^3/uL RBC (4.1-5.6) x10^6/uL Hgb (12.5-18.0) g/dL Hct (42-50) % MCV (78-100) fL MCH (26-32) pg MCHC (32-36) g/dL RDW (11.5-14.0) % Plt Count (150-450) x10^3/uL MPV (7.5-11.0) fL Sodium (135-145) mmol/L Potassium (3.5-5.1) mmol/L Chloride (98-107) mmol/L Carbon Dioxide (22-30) mmol/L Anion Gap (5-15) MEQ/L BUN (9-20) mg/dL Creatinine (0.66-1.25) mg/dL Estimated GFR ML/MIN Glucose (74-106) mg/dL Lactic Acid 1.1 (0.4-2.0) Calcium (8.4-10.2) mg/dL Magnesium 1.7 (1.6-2.3) mg/dL Total Bilirubin (0.2-1.3) mg/dL AST (17-59) U/L ALT (0-50) U/L Alkaline Phosphatase (38-126) U/L Serum Total Protein (6.3-8.2) g/dL Albumin (3.5-5.0) g/dL Radiology Exams: Radiology Procedures Category Date Time Status ABDOMEN AND PELVIS W/0 CONTRAS [CT] Stat Exams 02/24/24 17:42 Completed Assessment/Plan (1) Sepsis secondary to UTI Current Visit: Yes Status: Acute Code(s): A41.9 - SEPSIS, UNSPECIFIED ORGANISM; N39.0 - URINARY TRACT INFECTION, SITE NOT SPECIFIED (2) Complicated UTI (urinary tract infection) Current Visit: Yes Status: Acute Code(s): N39.0 - URINARY TRACT INFECTION, SITE NOT SPECIFIED (3) Hyperlipidemia Current Visit: Yes Status: Chronic Code(s): E78.5 - HYPERLIPIDEMIA, UNSPECIFIED (4) HTN (hypertension) Current Visit: Yes Status: Chronic Code(s): I10 - ESSENTIAL (PRIMARY) HYPERTENSION (5) Hypomagnesemia Current Visit: Yes Status: Acute Assessment & Plan: (1) Sepsis secondary to UTI Current Visit: Yes Status: Acute Assessment & Plan: - Lactic acid on admission 02/23 1.7 - 1L IVF bolus gave in ER on admission - Ceftriaxone started in ER- changed to Zosyn IP d/t hx of complicated UTI - + confirmed infection, temp > 100.4, HR > 90, WBC 14.4 - UC gram negative- sensitivity pending- + Bacteremia - BC x2 pending Code(s): A41.9 - SEPSIS, UNSPECIFIED ORGANISM; N39.0 - URINARY TRACT INFECTION, SITE NOT SPECIFIED (2) Complicated UTI (urinary tract infection) Current Visit: Yes Status: Acute Assessment & Plan: - Hx of recent UTI with hospitalization and recent shipley - Self caths- hx of prostitis - Follow urology Op- Dr. Usman Hinojosa IV - - gram negative- sensitivity pending - Will change to PO Levaquin in the AM Code(s): N39.0 - URINARY TRACT INFECTION, SITE NOT SPECIFIED (3) Hyperlipidemia Current Visit: Yes Status: Chronic Assessment & Plan: - Continue statin Code(s): E78.5 - HYPERLIPIDEMIA, UNSPECIFIED (4) HTN (hypertension) Current Visit: Yes Status: Chronic Assessment & Plan: - Controlled - Continue home BP meds VTE: Lovenox Next of Kin: D/C plan: 1-2 days Code status: Full Code(s): E83.42 - HYPOMAGNESEMIA
[2024-02-27 05:35] LABS: Hematocrit 36.3 % (42-50); Hemoglobin 11.8 g/dL (12.5-18.0); Mean Cell Volume 83.1 fL (78-100); Mean Corpuscular Hgb Concent. 32.5 g/dL (32-36); Mean Platelet Volume 11.7 fL (7.5-11.0); Platelet Count 168 x10^3/uL (150-450); Red Blood Count 4.37 x10^6/uL (4.1-5.6); White Blood Count 5.6 x10^3/uL (4.0-10.5)
[2024-02-27 05:53] LABS: ALBUMIN 3.1 g/dL (3.5-5.0); ANION GAP 10.8 MEQ/L (5-15); BILIRUBIN,TOTAL 1.2 mg/dL (0.2-1.3); Calcium 8.6 mg/dL (8.4-10.2); Creatinine 1 1.12 mg/dL (0.66-1.25); EST GLOMERULAR FILTRATION RATE 69.4 ML/MIN; Potassium 3.4 mmol/L (3.5-5.1); Total Protein 6.5 g/dL (6.3-8.2)
[2024-02-27] MEDS: Klor Con PO SCH (07:59)
[2024-02-27] MEDS: Levofloxacin 250MG Tablet PO SCH (08:36)
[2024-02-27] MEDS: Acidophilus TABLET PO SCH (08:37)
--- NOTE | 2024-02-27 10:38 | PCM.NOTE ---
Date and Time: 02/27/24 1031 Subjective Assessment: 02/25/24 Mr. Singer is a 73 year-old male with HTN, HLD, MCTD, recurrent UTIs, and GERD. He presented to ER on 02/24/24 with UTI related sxs. He admits to fevers and chills for one day.. Laboratory data revealed a UTI. He was started on Zosyn. explains he follows Dr. Mary- urology OP and recently had a shipley which was removed 2 weeks ago. Since then he has been self cathing. Spouse explains they are awaiting PSA results completed Op with Dr. Mary. He was thought to have prostatitis thus the reason for the shipley and self cathing needs. They were recently in [place] and was dx with a UTI there that showed e-coli in the urine. He was discharged home with Bactrim. WBC is elevated today at 14.1, creat 1.26- BL normal. UC is gram negative sensitivity pending. BC x2 pending. Pt did have a temp of 99-100 last night. He denies CP, SOB, abd. pain, N/V/D. 02/26/24 Pt sitting up on the side of the bed this morning eating breakfast. He states he feels much better today. He has had no overnight fevers. BCx1 came back gram negative- final report pending. UC positive for Klebsiella oxytoca, will start levaquin in the AM., BC sensitivity pending will likely d/c tomorrow if results are back. Pt concerned about how he will react to PO antibiotics as he has had stomach upset and diarrhea in the past, therefore changed to PO meds in AM. Urine is clear yellow today. He denies CP, SOB, abd. pain, N/V/D. Will need OP f/u with Dr. Mary- Urology. 02/27/24 Pt resting in bed. He reports overnight diarrhea. Will check stool for c-diff, probiotics started. Blood culture and UC + for Klebsiella oxytoca, sensitivity reviewed. Oral Levaquin started this AM. K+ 3.4 and replaced. Will observe overnight and likely d/c tomorrow pending c-diff results. He denies CP, SOB, N/V. - Review of Systems Constitutional: No Fever, No Chills Eyes: No Symptoms Ears, Nose, & Throat: No Symptoms Respiratory: No Cough, No Short Of Breath Cardiac: No Chest Pain, No Edema, No Syncope Abdominal/Gastrointestinal: Abdominal Pain (with palpation), Diarrhea, No Nausea, No Vomiting Genitourinary Symptoms: No Dysuria Musculoskeletal: No Back Pain, No Neck Pain Skin: No Rash Neurological: No Dizziness, No Focal Weakness, No Sensory Changes Psychological: No Symptoms Endocrine: No Symptoms Hematologic/Lymphatic: No Symptoms Immunological/Allergic: No Symptoms Objective Exam General Appearance: no apparent distress, alert Neurologic Exam: alert, oriented x 3, cooperative, normal mood/affect, nml cerebellar function, sensation nml, No motor deficits Skin Exam: normal color, warm, dry Eye Exam: PERRL, EOMI, eyes nml inspection Ears, Nose, Throat Exam: normal ENT inspection, pharynx normal, moist mucous membranes Neck Exam: normal inspection, non-tender, supple, full range of motion Respiratory Exam: normal breath sounds, lungs clear, No respiratory distress Cardiovascular Exam: regular rate/rhythm, normal heart sounds Gastrointestinal/Abdomen Exam: soft, tenderness (generalized with palpation), No mass Extremity Exam: normal inspection, normal range of motion Back Exam: normal inspection, normal range of motion, No CVA tenderness, No vertebral tenderness Male Genitalia Exam: deferred Rectal Exam: deferred Objective Data Vital Signs: Vital Signs - 24 hr Temp Pulse Resp BP Pulse Ox 02/27/24 08:00 96.9 F 81 18 153/81 02/27/24 04:00 98.6 F 85 20 137/89 96 02/26/24 23:43 98.8 F 86 18 143/87 96 02/26/24 19:16 99.6 F 100 H 18 124/87 95 02/26/24 16:30 98.9 F 97 H 20 153/89 96 02/26/24 11:47 97 02/26/24 11:39 98.2 F 86 20 158/79 Pain Assessment - Last Documented Pain Intensity 3 Pain Scale Used 0-10 Pain Scale Intake and Output: Intake & Output 02/24/24 02/25/24 02/26/24 02/27/24 11:59 11:59 11:59 11:59 Intake Total 483 9745 4730 Output Total 365 1125 8885 Balance 120 650 345 Weight 75.6 kg Lab Results: Lab Results-Last 24 Hours 02/27/24 02/27/24 Range/Units 05:10 05:10 WBC 5.6 (4.0-10.5) x10^3/uL RBC 4.37 (4.1-5.6) x10^6/uL Hgb 11.8 L (12.5-18.0) g/dL Hct 36.3 L (42-50) % MCV 83.1 (78-100) fL MCH 27.0 (26-32) pg MCHC 32.5 (32-36) g/dL RDW 15.0 H (11.5-14.0) % Plt Count 168 (150-450) x10^3/uL MPV 11.7 H (7.5-11.0) fL Sodium 141 (135-145) mmol/L Potassium 3.4 L (3.5-5.1) mmol/L Chloride 108 H (98-107) mmol/L Carbon Dioxide 26 (22-30) mmol/L Anion Gap 10.8 (5-15) MEQ/L BUN 17 (9-20) mg/dL Creatinine 1.12 (0.66-1.25) mg/dL Estimated GFR 69.4 ML/MIN Glucose 105 (74-106) mg/dL Calcium 8.6 (8.4-10.2) mg/dL Total Bilirubin 1.20 (0.2-1.3) mg/dL AST 32 (17-59) U/L ALT 26 (0-50) U/L Alkaline Phosphatase 72 (38-126) U/L Serum Total Protein 6.5 (6.3-8.2) g/dL Albumin 3.1 L (3.5-5.0) g/dL Assessment/Plan (1) Sepsis secondary to UTI Current Visit: Yes Status: Acute Code(s): A41.9 - SEPSIS, UNSPECIFIED ORGANISM; N39.0 - URINARY TRACT INFECTION, SITE NOT SPECIFIED (2) Complicated UTI (urinary tract infection) Current Visit: Yes Status: Acute Code(s): N39.0 - URINARY TRACT INFECTION, SITE NOT SPECIFIED (3) Hyperlipidemia Current Visit: Yes Status: Chronic Code(s): E78.5 - HYPERLIPIDEMIA, UNSPECIFIED (4) HTN (hypertension) Current Visit: Yes Status: Chronic Code(s): I10 - ESSENTIAL (PRIMARY) HYPERTENSION (5) Hypomagnesemia Current Visit: Yes Status: Acute Assessment & Plan: (1) Sepsis secondary to UTI Current Visit: Yes Status: Acute Assessment & Plan: - Lactic acid on admission 02/23 1.7 - 1L IVF bolus gave in ER on admission - Ceftriaxone started in ER- changed to Zosyn IP d/t hx of complicated UTI - + confirmed infection, temp > 100.4, HR > 90, WBC 14.4 - UC gram negative- sensitivity pending- + Bacteremia - BC x2 pending 02/26 - BC X1 positive for Klebsiella Oxytoca- Started oral Levaquin Code(s): A41.9 - SEPSIS, UNSPECIFIED ORGANISM; N39.0 - URINARY TRACT INFECTION, SITE NOT SPECIFIED (2) Complicated UTI (urinary tract infection) Current Visit: Yes Status: Acute Assessment & Plan: - Hx of recent UTI with hospitalization and recent shipley - Self caths- hx of prostitis - Follow urology Op- Dr. Mary - Theodorasymillicent IV - UC- gram negative- - Will change to PO Levaquin in the AM 02/26 - Pt developed diarrhea overnight- before starting Levaquin _ change antibiotic to oral Levaquin - probiotics started Code(s): N39.0 - URINARY TRACT INFECTION, SITE NOT SPECIFIED (3) Hyperlipidemia Current Visit: Yes Status: Chronic Assessment & Plan: - Continue statin Code(s): E78.5 - HYPERLIPIDEMIA, UNSPECIFIED (4) HTN (hypertension) Current Visit: Yes Status: Chronic Assessment & Plan: - Controlled - Continue home BP meds 5. Hypomagnesemia E83.42 - resolved on 02/25 Code(s): E83.42 - HYPOMAGNESEMIA (6) Diarrhea Current Visit: Yes Status: Acute Assessment & Plan: - Stool for c-diff- pending - Probiotics started - Occult stool Code(s): R19.7 - DIARRHEA, UNSPECIFIED (7) Hypokalemia Current Visit: Yes Status: Acute Assessment & Plan: - K+ 3.4 - replaced- trend VTE: Lovenox Next of Kin: D/C plan: tomorrow? Code status: Full Code(s): E87.6 - HYPOKALEMIA
[2024-02-27 11:47] LABS: 027 TOX PROD PRESUMPTIVE NEGATIVE (NEGATIVE); TOXIGENIC C. DIFF ORG NEGATIVE (NEGATIVE)
[2024-02-27 13:25] LABS: IFOB TEST RESULTS POSITIVE (NEGATIVE)
[2024-02-28 04:57] LABS: Hematocrit 37.9 % (42-50); Hemoglobin 12.4 g/dL (12.5-18.0); Mean Cell Volume 83.1 fL (78-100); Mean Corpuscular Hemoglobin 27.2 pg (26-32); Mean Corpuscular Hgb Concent. 32.7 g/dL (32-36); Platelet Count 209 x10^3/uL (150-450); Red Blood Count 4.56 x10^6/uL (4.1-5.6); Red Cell Distribution Width 14.9 % (11.5-14.0); White Blood Count 5.5 x10^3/uL (4.0-10.5)
[2024-02-28 05:11] LABS: ALBUMIN 3.2 g/dL (3.5-5.0); ANION GAP 11.8 MEQ/L (5-15); BILIRUBIN,TOTAL 0.6 mg/dL (0.2-1.3); Calcium 8.7 mg/dL (8.4-10.2); Creatinine 1 1.12 mg/dL (0.66-1.25); EST GLOMERULAR FILTRATION RATE 69.4 ML/MIN; MAGNESIUM 1.7 mg/dL (1.6-2.3); Potassium 3.9 mmol/L (3.5-5.1); Total Protein 6.2 g/dL (6.3-8.2)
[2024-02-28 07:28] VITALS: BP 145/81; PULSE 92; RESP 16; TEMP 97.7; O2SAT 94
--- NOTE | 2024-02-28 08:25 | PCM.DS ---
Discharge Summary Date of Admission: 02/24/24 20:58 Date of Discharge: 02/28/24 Admitting Physician: NORMA SALINAS MD Primary Care Provider: CARMEN BRIONES ELDER Allergies Allergies acetaminophen [From [place]] Allergy (Verified 02/24/24 17:17) atovaquone [From [place]] Allergy (Verified 02/24/24 17:17) Bisphosphonates Allergy (Verified 02/24/24 17:17) codeine Allergy (Verified 02/24/24 17:17) hydrocodone [From [place]] Allergy (Verified 02/24/24 17:17) proguanil [From [facility]] Allergy (Verified 02/24/24 17:17) Hospital Summary - Hospital Course Hospital Course: 02/25/24 Mr. Singer is a 73 year-old male with HTN, HLD, MCTD, recurrent UTIs, and GERD. He presented to ER on 02/24/24 with UTI related sxs. He admits to fevers and chills for one day.. Laboratory data revealed a UTI. He was started on Zosyn. explains he follows Dr. Chin- urology OP and recently had a shipley which was removed 2 weeks ago. Since then he has been self cathing. Spouse explains they are awaiting PSA results completed Op with Dr. Chin. He was thought to have prostatitis thus the reason for the shipley and self cathing needs. They were recently in [place] and was dx with a UTI there that showed e-coli in the urine. He was discharged home with Bactrim. WBC is elevated today at 14.1, creat 1.26- BL normal. UC is gram negative sensitivity pending. BC x2 pending. Pt did have a temp of 99-100 last night. He denies CP, SOB, abd. pain, N/V/D. 02/26/24 Pt sitting up on the side of the bed this morning eating breakfast. He states he feels much better today. He has had no overnight fevers. BCx1 came back gram negative- final report pending. UC positive for Klebsiella oxytoca, will start levaquin in the AM., BC sensitivity pending will likely d/c tomorrow if results are back. Pt concerned about how he will react to PO antibiotics as he has had stomach upset and diarrhea in the past, therefore changed to PO meds in AM. Urine is clear yellow today. He denies CP, SOB, abd. pain, N/V/D. Will need OP f/u with Dr. Chin- Urology. 02/27/24 Pt resting in bed. He reports overnight diarrhea. Will check stool for c-diff, probiotics started. Blood culture and UC + for Klebsiella oxytoca, sensitivity reviewed. Oral Levaquin started this AM. K+ 3.4 and replaced. Will observe overnight and likely d/c tomorrow pending c-diff results. He denies CP, SOB, N/V. 02/28/24 Pt had no overnight events of diarrhea. He reports feeling much better today. C- Dif negative. Occult stool +. Pt states he had a colonoscopy in September and was told he had a bleed but had resolved. Hgb 12.4. He denies dark or bloody stools. Will continue Levaquin Po OP for complicated UTI. Recommend probiotics as well. He denies CP, abd. pain, SOB, N/V/D. He has an appointment with urology tomorrow morning. would like to make f/u appointment with pt's GI for + occult. - Vitals & Intake/Output Vital Signs: Vital Signs Temperature 97.7 F 02/28/24 07:27 Pulse Rate 92 H 02/28/24 07:27 Respiratory Rate 16 02/28/24 07:27 Blood Pressure 145/81 02/28/24 07:27 O2 Sat by Pulse Oximetry 94 L 02/28/24 07:27 Intake & Output: Intake & Output 02/25/24 02/26/24 02/27/24 02/28/24 11:59 11:59 11:59 11:59 Intake Total 670 1775 2420 653 Output Total 550 1125 2075 1900 Balance 120 644 472 -1244 Weight 75.6 kg - Lab Result Diagrams: 02/28/24 04:15 02/28/24 04:15 Lab Results-Last 24 Hrs: Lab Results-Last 24 Hours 02/27/24 02/27/24 02/27/24 Range/Units 11:00 11:30 16:05 WBC (4.0-10.5) x10^3/uL RBC (4.1-5.6) x10^6/uL Hgb (12.5-18.0) g/dL Hct (42-50) % MCV (78-100) fL MCH (26-32) pg MCHC (32-36) g/dL RDW (11.5-14.0) % Plt Count (150-450) x10^3/uL MPV (7.5-11.0) fL Sodium (135-145) mmol/L Potassium 3.8 (3.5-5.1) mmol/L Chloride (98-107) mmol/L Carbon Dioxide (22-30) mmol/L Anion Gap (5-15) MEQ/L BUN (9-20) mg/dL Creatinine (0.66-1.25) mg/dL Estimated GFR ML/MIN Glucose (74-106) mg/dL Calcium (8.4-10.2) mg/dL Magnesium (1.6-2.3) mg/dL Total Bilirubin (0.2-1.3) mg/dL AST (17-59) U/L ALT (0-50) U/L Alkaline Phosphatase (38-126) U/L Serum Total Protein (6.3-8.2) g/dL Albumin (3.5-5.0) g/dL Stl Occult Blood (IFOB) POSITIVE A (NEGATIVE) C. difficile Screen NEGATIVE (NEGATIVE) C.difficile [id number]-[id number] PRESUMPTIVE NEGATIVE (NEGATIVE) 02/28/24 02/28/24 Range/Units 04:15 04:15 WBC 5.5 (4.0-10.5) x10^3/uL RBC 4.56 (4.1-5.6) x10^6/uL Hgb 12.4 L (12.5-18.0) g/dL Hct 37.9 L (42-50) % MCV 83.1 (78-100) fL MCH 27.2 (26-32) pg MCHC 32.7 (32-36) g/dL RDW 14.9 H (11.5-14.0) % Plt Count 209 (150-450) x10^3/uL MPV 12.0 H (7.5-11.0) fL Sodium 141 (135-145) mmol/L Potassium 3.9 (3.5-5.1) mmol/L Chloride 106 (98-107) mmol/L Carbon Dioxide 26 (22-30) mmol/L Anion Gap 11.8 (5-15) MEQ/L BUN 17 (9-20) mg/dL Creatinine 1.12 (0.66-1.25) mg/dL Estimated GFR 69.4 ML/MIN Glucose 95 (74-106) mg/dL Calcium 8.7 (8.4-10.2) mg/dL Magnesium 1.7 (1.6-2.3) mg/dL Total Bilirubin 0.60 (0.2-1.3) mg/dL AST 36 (17-59) U/L ALT 29 (0-50) U/L Alkaline Phosphatase 72 (38-126) U/L Serum Total Protein 6.2 L (6.3-8.2) g/dL Albumin 3.2 L (3.5-5.0) g/dL Stl Occult Blood (IFOB) (NEGATIVE) C. difficile Screen (NEGATIVE) C.difficile [id number] (NEGATIVE) Micro Results-Entire Visit: Microbiology 02/24/24 18:23 Blood Culture Gram Stain - Final Blood Blood Culture - Final Klebsiella Oxytoca 02/24/24 18:18 Urine Culture - Final Clean Catch Midstream Klebsiella Oxytoca Discharge Exam General Appearance: no apparent distress, alert Neurologic Exam: alert, oriented x 3, cooperative, normal mood/affect, nml cerebellar function, sensation nml, No motor deficits Eye Exam: PERRL, EOMI, eyes nml inspection Ears, Nose, Throat Exam: normal ENT inspection, pharynx normal, moist mucous membranes Neck Exam: normal inspection, non-tender, supple, full range of motion Respiratory Exam: normal breath sounds, lungs clear, No respiratory distress Cardiovascular Exam: regular rate/rhythm, normal heart sounds Gastrointestinal/Abdomen Exam: soft, No tenderness, No mass Male Genitalia Exam: deferred Rectal Exam: deferred Back Exam: normal inspection, normal range of motion, No CVA tenderness, No vertebral tenderness Extremity Exam: normal inspection, normal range of motion Skin Exam: normal color, warm, dry Final Diagnosis/Problem List - Final Discharge Diagnosis/Problem (1) Sepsis secondary to UTI Current Visit: Yes Status: Acute Code(s): A41.9 - SEPSIS, UNSPECIFIED ORGANISM; N39.0 - URINARY TRACT INFECTION, SITE NOT SPECIFIED (2) Complicated UTI (urinary tract infection) Current Visit: Yes Status: Acute Code(s): N39.0 - URINARY TRACT INFECTION, SITE NOT SPECIFIED (3) Hyperlipidemia Current Visit: Yes Status: Chronic Code(s): E78.5 - HYPERLIPIDEMIA, UNSPECIFIED (4) HTN (hypertension) Current Visit: Yes Status: Chronic Code(s): I10 - ESSENTIAL (PRIMARY) HYPERTENSION (5) Hypomagnesemia Current Visit: Yes Status: Acute Code(s): E83.42 - HYPOMAGNESEMIA (6) Diarrhea Current Visit: Yes Status: Acute Code(s): R19.7 - DIARRHEA, UNSPECIFIED (7) Hypokalemia Current Visit: Yes Status: Acute Assessment & Plan: (1) Sepsis secondary to UTI Current Visit: Yes Status: Acute Assessment & Plan: - Lactic acid on admission 02/23 1.7 - 1L IVF bolus gave in ER on admission - Ceftriaxone started in ER- changed to Zosyn IP d/t hx of complicated UTI - + confirmed infection, temp > 100.4, HR > 90, WBC 14.4 - UC gram negative- sensitivity pending- + Bacteremia - BC x2 pending 02/26 - BC X1 positive for Klebsiella Oxytoca- Started oral Levaquin Code(s): A41.9 - SEPSIS, UNSPECIFIED ORGANISM; N39.0 - URINARY TRACT INFECTION, SITE NOT SPECIFIED (2) Complicated UTI (urinary tract infection) Current Visit: Yes Status: Acute Assessment & Plan: - Hx of recent UTI with hospitalization and recent shipley - Self caths- hx of prostitis - Follow urology Op- Dr. Chin - Micaela IV - UC- gram negative- - Will change to PO Levaquin in the AM 02/26 - Pt developed diarrhea overnight- before starting Levaquin - change antibiotic to oral Levaquin - probiotics started 02/27 - No diarrhea since yesterday since starting probiotics - Continue Levaquin OP - Continue probiotics - F/u with urology tomorrow as scheduled. Code(s): N39.0 - URINARY TRACT INFECTION, SITE NOT SPECIFIED (3) Hyperlipidemia Current Visit: Yes Status: Chronic Assessment & Plan: - Continue statin Code(s): E78.5 - HYPERLIPIDEMIA, UNSPECIFIED (4) HTN (hypertension) Current Visit: Yes Status: Chronic Assessment & Plan: - Controlled - Continue home BP meds . Hypomagnesemia E83.42 - resolved on 02/25 Code(s): E83.42 - HYPOMAGNESEMIA (6) Diarrhea Current Visit: Yes Status: Acute Assessment & Plan: - Stool for c-diff- negative - Probiotics started - Occult stool +, Hgb 12.4- would like to make appointment OP with pt's GI Code(s): R19.7 - DIARRHEA, UNSPECIFIED (7) Hypokalemia Current Visit: Yes Status: Acute Assessment & Plan: - K+ 3.4 - replaced- trend 02/27 - K+ 3.9- resolved Code(s): E87.6 - HYPOKALEMIA - Discharge Discharge Date: 02/28/24 Disposition: Home, Self-Care Condition: Stable Prescriptions: New Levofloxacin [Levofloxacin 250MG Tablet] 750 mg PO DAILY 5 Days #5 tablet Continue Omeprazole [Prilosec] 20 mg DAILY Hydroxychloroquine Sulfate [Plaquenil] 200 mg DAILY Aspirin EC 81 mg [Ecotrin 81 mg] 81 mg PO DAILY Losartan/Hydrochlorothiazide [Losartan-Hctz 50-12.5 mg Tab] 1 each PO DAILY Levothyroxine Sodium 100 Mcg [Synthroid 100 Mcg] 100 mcg PO DAILY Atorvastatin Calcium [Lipitor 40Mg] 10 mg PO DAILY Amlodipine Besylate [Norvasc] 2.5 mg PO DAILY Tamsulosin HCl 0.4 mg [Flomax 0.4 MG] 0.4 mg PO BID Additional Instructions: Please buy an over the counter probiotic to help with GI upset. Make appointment with GI for follow up. Follow up tomorrow for appointment with urology as scheduled. Follow up with: CARMEN BRIONES MD [Primary Care Provider] - 03/06/24 2:15 pm KEILA CHIN MD [NON-STAFF PHY W/O PRIVILEGES] - 02/29/24 8:30 am (FAX CHART TO [phone])
== END 2024-02-28 09:21 | disposition home or self-care (01) | DRG 872 ==
LOC: ED 16:56 → MED SURG 20:58 → OBSVTOIN 02-25 12:08
PROVIDERS: ADMIT Internal Medicine Critical Care Medicine; ATTEND Internal Medicine Critical Care Medicine
DX: A41.9 Sepsis, unspecified organism (principal); N39.0 Urinary tract infection, site not specified; B96.1 Klebsiella pneumoniae [K. pneumoniae] as the cause of diseases classified elsewhere; R19.7 Diarrhea, unspecified; E78.5 Hyperlipidemia, unspecified; I10 Essential (primary) hypertension; E83.42 Hypomagnesemia; E87.6 Hypokalemia; I25.2 Old myocardial infarction; Z79.899 Other long term (current) drug therapy
CPT/HCPCS: 0241U; 36415; 74176; 80053; 81001; 83605; 83690; 83735; 84132; 84145; 85025; 85027; 87040; 87077; 87086; 87186; 87493; 96360; 96365; 96374; 99285; G0328; Q3014; 82274; G0378; J0696; J1650; J2405; A9270-GY

== ENCOUNTER 2025-02-22 19:57 | Emergency (ER) | payer MEDICARE, OTHER ==
[2025-02-22 20:18] VITALS: TEMP 97
--- NOTE | 2025-02-22 20:26 | ERPHSYRPT ---
- History of Present Illness Time Seen by Provider: 02/22/25 20:22 Source: patient Exam Limitations: no limitations Patient Subjective Stated Complaint: pt reports increased bp from normal for the last week. pt states yesterday at his scheduled outpatient cardiology appointment his blood pressure was elevated and his automobile contract clerk told him to continue his home medications per normal and monitor his blood pressure. pt states card office advised him to notify their office of any elevated readings, pt states this evening his BP was 189/109 at home and his automobile contract clerk office was already closed. pt reports slight headache and some fatigue, denies chest pain or shortness of breath. Triage Nursing Assessment: pt is aox3, pupils perrl, afebrile, resps easy and non labored, radial pulses strong and equal, cap refill < 3 seconds, pt heart tones are regular, pt skin pink warm dry. Physician History: Patient is a 74-year-old male presents to our ED for evaluation of high blood pressure. Patient states his blood pressure has been running higher than normal. Patient followed up with his automobile contract clerk Dr. Dickinson. Their plan was to continue his home meds and observe the blood pressure. However patient states that he became concerned when his blood pressure increased to 200 systolic. Patient was experiencing a headache so decided to come to our ED for an evaluation. No chest pain no shortness of breath no nausea vomiting or diaphoresis. Patient states he feels somewhat fatigued but otherwise feels well. Patient's is at the bedside. They voiced no other complaints or concerns at this time. Portions of this note were created with voice recognition technology. There may be grammatical, spelling, punctuation or sound alike errors Timing/Duration: today Severity: moderate Modifying Factors: Improves With: nothing Associated Symptoms: denies symptoms Allergies/Adverse Reactions: acetaminophen [From Julian] Allergy (Verified 02/22/25 20:19) atovaquone [From Malarone] Allergy (Verified 02/22/25 20:19) Bisphosphonates Allergy (Verified 02/22/25 20:19) codeine Allergy (Verified 02/22/25 20:19) hydrocodone [From Julian] Allergy (Verified 02/22/25 20:19) proguanil [From Malarone] Allergy (Verified 02/22/25 20:19) Home Medications: Hydroxychloroquine Sulfate [Plaquenil] 200 mg DAILY 01/25/14 [History] Aspirin EC 81 mg [Ecotrin 81 mg] 81 mg PO DAILY 08/22/18 [History] Atorvastatin Calcium [Lipitor 40Mg] 10 mg PO DAILY 08/22/18 [History] Levothyroxine Sodium 100 Mcg [Synthroid 100 Mcg] 100 mcg PO DAILY 08/22/18 [History] Losartan/Hydrochlorothiazide [Losartan-Hctz 50-12.5 mg Tab] 1 each PO DAILY 08/22/18 [History] Carvedilol 3.125 mg [Coreg 3.125 MG] 3.125 mg PO BID 02/22/25 [History] Ferrous Sulfate 325 mg PO BID 02/22/25 [History] Pantoprazole Sodium 40 mg PO BID 02/22/25 [History] Hx Tetanus, Diphtheria Vaccination/Date Given: Yes Hx Influenza Vaccination/Date Given: Yes Hx Pneumococcal Vaccination/Date Given: Yes Immunizations Up to Date: Yes Travel Risk - International Travel Have you traveled outside of the country in past 3 weeks: No - Emerging Infectious Disease Are you exhibiting symptoms associated with any current EIDs: No - Review of Systems Constitutional: No Symptoms, No Fever, No Chills Eyes: No Symptoms Ears, Nose, & Throat: No Symptoms Respiratory: No Symptoms, No Cough, No Dyspnea Cardiac: No Symptoms, No Chest Pain, No Edema, No Syncope Abdominal/Gastrointestinal: No Symptoms, No Abdominal Pain, No Nausea, No Vomiting, No Diarrhea Genitourinary Symptoms: No Symptoms, No Dysuria Musculoskeletal: No Symptoms, No Back Pain, No Neck Pain Skin: No Symptoms, No Rash Neurological: No Symptoms, No Dizziness, No Focal Weakness, No Sensory Changes Psychological: No Symptoms Endocrine: No Symptoms Hematologic/Lymphatic: No Symptoms Immunological/Allergic: No Symptoms All Other Systems: Reviewed and Negative - Past Medical History Pertinent Past Medical History: Yes Neurological History: No Pertinent History ENT History: No Pertinent History Cardiac History: Hypertension, Myocardial Infarction ([place]) Respiratory History: No Pertinent History Endocrine Medical History: Hypothyroidism Musculoskeletal History: Other GI Medical History: Diverticulosis, GERD, Gallbladder Disease, Hernia History: No Pertinent History, Other Psycho-Social History: No Pertinent History Male Reproductive Disorders: No Pertinent History, Other Other Medical History: CONECTIVE TISSUE DISEASE, gout. 2023 and 10/2024 - "lost blood through his bowels" - Past Surgical History Past Surgical History: Yes Neuro Surgical History: No Pertinent History Cardiac: No Pertinent History Respiratory: No Pertinent History Gastrointestinal: Cholecystectomy, Hernia Repair Genitourinary: No Pertinent History Musculoskeletal: Orthopedic Surgery, Other Male Surgical History: Prostate Surgery Other Surgical History: c3 neck surgery, holep to prostate Significant Family History: no pertinent family hx - Social History Smoking Status: Never smoker Exposure to second hand smoke: No Drug Use: none - Social Determinants of Health Will the patient participate in the screening: Yes Do you worry about a steady place to live?: No Do you have any problems with any of the following?: No known problems In the past 12 months,have you had to go without utilities?: No Transportation Issues: No Has anyone in your support network made you feel unsafe?: No Have you or anyone in your house had to go w/o enough food: No - Nursing Vital Signs Nursing Vital Signs: Initial Vital Signs Temperature 97 F 02/22/25 20:03 Pulse Rate 67 02/22/25 20:03 Respiratory Rate 18 02/22/25 20:03 Blood Pressure 212/132 02/22/25 20:03 O2 Sat by Pulse Oximetry 99 02/22/25 20:03 Pain Scale Pain Intensity 0 - Physical Exam General Appearance: no apparent distress, alert Eye Exam: PERRL/EOMI, eyes nml inspection Ears, Nose, Throat Exam: normal ENT inspection, TMs normal, pharynx normal, moist mucous membranes Neck Exam: normal inspection, non-tender, supple, full range of motion Respiratory Exam: normal breath sounds, lungs clear, airway intact, No respiratory distress Cardiovascular Exam: regular rate/rhythm, normal heart sounds, normal peripheral pulses Gastrointestinal/Abdomen Exam: soft, normal bowel sounds, No tenderness, No mass Back Exam: normal inspection, normal range of motion, No CVA tenderness, No vertebral tenderness Extremity Exam: normal inspection, normal range of motion, pelvis stable Neurologic Exam: alert, oriented x 3, cooperative, normal mood/affect, sensation nml, No motor deficits Skin Exam: normal color, warm, dry, No rash Lymphatic Exam: No adenopathy SpO2 Interpretation: normal SpO2: 99 O2 Delivery: Room Air - Course Nursing assessment & vital signs reviewed: Yes EKG Interpreted by Me: RATE (72), Sinus Rhythm, NORMAL AXIS, NORMAL INTERVALS, NORMAL QRS - CT Exams Head CT Interpretation: Tele-radiologist Report (Remote lacunar right basal ganglia) Ordered Tests: Active Orders 24 hr Category Date Time Status Inspector Golf Ball STAT Care 02/22/25 20:21 Active EKG-ER Only STAT Care 02/22/25 20:20 Active IV Insertion STAT Care 02/22/25 20:20 Active Pulse Oximetry (ED) STAT Care 02/22/25 20:20 Active HEAD WITHOUT CONTRAST [CT] Stat Exams 02/22/25 20:40 Taken CBC W DIFF Stat Lab 02/22/25 20:30 Completed CMP Stat Lab 02/22/25 20:30 Completed NT PRO BNPII Stat Lab 02/22/25 20:30 Completed TROPONIN Q4H Lab 02/22/25 20:30 Completed TROPONIN Q4H Lab 02/22/25 23:05 Completed TROPONIN Q4H Lab 02/23/25 00:30 Ordered TROPONIN Q4H Lab 02/23/25 03:00 Ordered TROPONIN Q4H Lab 02/23/25 04:30 Ordered TROPONIN Q4H Lab 02/23/25 07:00 Ordered UA W/RFX UR CULTURE Stat Lab 02/22/25 20:47 Completed Medication Summary Generic Name Dose Route Start Last Admin Trade Name Freq PRN Reason Stop Dose Admin Carvedilol 3.125 mg 02/23/25 10:00 02/22/25 23:46 Carvedilol 3.125 Mg Tablet PO 03/25/25 09:59 3.125 mg DAILY BUCKY Administration Lab/Rad Data: Laboratory Result Diagrams 02/22/25 20:30 02/22/25 20:30 Laboratory Results 02/22/25 02/22/25 02/22/25 Range/Units 23:05 20:47 20:30 WBC (4.23-9.07) x10^3/uL RBC (4.63-6.08) x10^6/uL Hgb (13.7-17.5) g/dL Hct (40.1-51.0) % MCV (79.0-92.2) fL MCH (25.7-32.2) pg MCHC (32.3-36.5) g/dL RDW (11.6-14.4) % Plt Count (163-337) x10^3/uL MPV (9.4-12.4) fL Gran % (34.0-67.9) % Immature Gran % (Auto) (0.001-0.429) % Nucleat RBC Rel Count (0.00-0.2) % Eos # (Auto) (0.04-0.54) x10^3/uL Immature Gran # (Auto) (0.001-0.031) x10^3u/L Absolute Lymphs (auto) (1.32-3.57) x10^3/uL Absolute Monos (auto) (0.30-0.82) x10^3/uL Absolute Nucleated RBC (0.00-0.012) x10^3u/L Lymphocytes % (21.8-53.1) % Monocytes % (5.3-12.2) % Eosinophils % (0.8-7.0) % Basophils % (0.2-1.2) % Absolute Granulocytes (1.78-5.38) x10^3/uL Basophils # (0.01-0.08) x10^3/uL Sodium (135-145) mmol/L Potassium (3.5-5.1) mmol/L Chloride (98-107) mmol/L Carbon Dioxide (22-30) mmol/L Anion Gap (5-15) MEQ/L BUN (9-20) mg/dL Creatinine (0.66-1.25) mg/dL Estimated GFR ML/MIN Glucose (74-106) mg/dL Calcium (8.4-10.2) mg/dL Total Bilirubin (0.2-1.3) mg/dL AST (17-59) U/L ALT (0-50) U/L Alkaline Phosphatase (38-126) U/L Troponin I < 0.012 < 0.012 (0.000-0.033) ng/mL NT-Pro-B Natriuret Pep (<300) pg/mL Serum Total Protein (6.3-8.2) g/dL Albumin (3.5-5.0) g/dL Urine Color Yellow (Yellow) Urine Appearance Clear (Clear) Urine pH 6.5 (4.6-8.0) Ur Specific [place] <=1.005 (1.005-1.030) Urine Protein Negative (Negative) Urine Glucose (UA) Negative (Negative) mg/dL Urine Ketones Negative (Negative) Urine Blood Negative (Negative) Urine Nitrite Negative (Negative) Urine Bilirubin Negative (Negative) Urine Urobilinogen 0.2 (0.2) mg/dL Ur Leukocyte Esterase Negative (Negative) U Hyaline Cast (Auto) NONE SEEN (0-2) /LPF Urine Microscopic RBC 0-2 (0-5) /HPF Urine Microscopic WBC 0-2 (0-5) /HPF Ur Epithelial Cells None Seen (None Seen) /HPF Urine Bacteria None Seen (None Seen) /HPF Urine Culture Reflexed NO (NO) 02/22/25 02/22/25 Range/Units 20:30 20:30 WBC 6.3 (4.23-9.07) x10^3/uL RBC 5.40 (4.63-6.08) x10^6/uL Hgb 15.2 (13.7-17.5) g/dL Hct 45.8 (40.1-51.0) % MCV 84.8 (79.0-92.2) fL MCH 28.1 (25.7-32.2) pg MCHC 33.2 (32.3-36.5) g/dL RDW 14.6 H (11.6-14.4) % Plt Count 194 (163-337) x10^3/uL MPV 9.7 (9.4-12.4) fL Gran % 56.5 (34.0-67.9) % Immature Gran % (Auto) 0.3 (0.001-0.429) % Nucleat RBC Rel Count 0.0 (0.00-0.2) % Eos # (Auto) 0.29 (0.04-0.54) x10^3/uL Immature Gran # (Auto) 0.02 (0.001-0.031) x10^3u/L Absolute Lymphs (auto) 1.60 (1.32-3.57) x10^3/uL Absolute Monos (auto) 0.81 (0.30-0.82) x10^3/uL Absolute Nucleated RBC 0.00 (0.00-0.012) x10^3u/L Lymphocytes % 25.3 (21.8-53.1) % Monocytes % 12.8 H (5.3-12.2) % Eosinophils % 4.6 (0.8-7.0) % Basophils % 0.5 (0.2-1.2) % Absolute Granulocytes 3.58 (1.78-5.38) x10^3/uL Basophils # 0.03 (0.01-0.08) x10^3/uL Sodium 141 (135-145) mmol/L Potassium 4.5 (3.5-5.1) mmol/L Chloride 104 (98-107) mmol/L Carbon Dioxide 28 (22-30) mmol/L Anion Gap 13.1 (5-15) MEQ/L BUN 15 (9-20) mg/dL Creatinine 0.92 (0.66-1.25) mg/dL Estimated GFR 87.3 ML/MIN Glucose 99 (74-106) mg/dL Calcium 9.3 (8.4-10.2) mg/dL Total Bilirubin 0.60 (0.2-1.3) mg/dL AST 34 (17-59) U/L ALT 33 (0-50) U/L Alkaline Phosphatase 101 (38-126) U/L Troponin I (0.000-0.033) ng/mL NT-Pro-B Natriuret Pep 198 (<300) pg/mL Serum Total Protein 6.7 (6.3-8.2) g/dL Albumin 4.3 (3.5-5.0) g/dL Urine Color (Yellow) Urine Appearance (Clear) Urine pH (4.6-8.0) Ur Specific [place] (1.005-1.030) Urine Protein (Negative) Urine Glucose (UA) (Negative) mg/dL Urine Ketones (Negative) Urine Blood (Negative) Urine Nitrite (Negative) Urine Bilirubin (Negative) Urine Urobilinogen (0.2) mg/dL Ur Leukocyte Esterase (Negative) U Hyaline Cast (Auto) (0-2) /LPF Urine Microscopic RBC (0-5) /HPF Urine Microscopic WBC (0-5) /HPF Ur Epithelial Cells (None Seen) /HPF Urine Bacteria (None Seen) /HPF Urine Culture Reflexed (NO) - Progress Progress: improved Progress Note: I spoke to Dr. Miller hospitalist covering . He advised administering a dose of Coreg now. Increasing the losartan hydrochlorothiazide to twice daily. Patient to follow-up with Dr. Dickinson in the morning. 02/22/25 23:38 74-year-old male presents to our ED for evaluation of hypertension. Patient complains of a headache. 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 Otherwise negative. Laboratory workup nonremarkable. Troponin negative x 2. EKG sinus rhythm no ischemic changes. We will discharge patient home. Patient received an additional dose of Coreg in our ED as per Dr. Miller. They will take the losartan hydrochlorothiazide twice daily as stated above. They agree to follow-up with Dr. Dickinson in the morning. No indication for further workup at this time. Will discharge home. at bedside. They voiced no other complaints or concerns at this time. Portions of this note were created with voice recognition technology. There may be grammatical, spelling, punctuation or sound alike errors Complexity of problem addressed is moderate acute complicated. No critical care time. Complexity of data reviewed and analyzed is extensive. Test ordered test reviewed results analyzed and correlated clinically with history and physical exam. Management discussed with Dr. Miller. Risk of complication and or risk of morbidity/mortality of patient management is low. Vital stable. Time spent to discharge patient is approximately 15 minutes. Plan of care established for shared decision making. No social determinants of health present to impede follow-up. Portions of this note were created with voice recognition technology. There may be grammatical, spelling, punctuation or sound alike errors 02/22/25 23:40 Counseled pt/family regarding: diagnosis, need for follow-up, rad results - Departure Departure Disposition: Home Clinical Impression: Hypertension, Headache Condition: Stable Critical Care Time: No Referrals: CARMEN BRIONES MD [Primary Care Provider, [facility]] - Follow up/PCP as directed Additional Instructions: Discharge/Care Plan QUINCY DUENAS was seen on 02/22/25 in the Emergency Room. The patient was counseled regarding Diagnosis,Lab results, Imaging studies, need for follow up and when to return to the Emergency Room. Prescriptions given: Discharge Note I have spoken with the patient and/or caregivers. I have explained the patient's condition, diagnosis and treatment plan based on the information available to me at this time. I have answered the patient's and/or caregiver's questions and addressed any concerns. The patient and/or caregivers have as good understanding of the patient's diagnosis, condition and treatment plan as can be expected at this point. The vital signs have been stable. The patient's condition is stable and appropriate for discharge from the emergency department. The patient will pursue further outpatient evaluation with the primary care physician or other designated or consulting physician as outlined in the discharge instructions. The patient and/or caregivers are agreeable to this plan of care and follow-up instructions have been explained in detail. The patient and/or caregivers have received these instruction. The patient/and or caregivers are aware that any significant change in condition or worsening of symptoms should prompt an immediate return to this or the closest emergency department or call 911.
[2025-02-22 20:35] LABS: Absolute Neutrophil Ct (ANC) 3.58 x10^3/uL (1.78-5.38); BASOPHIL % 0.5 % (0.2-1.2); Basophil (Absolute #) 0.03 x10^3/uL (0.01-0.08); Eosinophil % 4.6 % (0.8-7.0); Eosinophil (Absolute #) 0.29 x10^3/uL (0.04-0.54); Hematocrit 45.8 % (40.1-51.0); Hemoglobin 15.2 g/dL (13.7-17.5); IMMATURE GRAN # 0.02 x10^3u/L (0.001-0.031); IMMATURE GRAN % 0.3 % (0.001-0.429); Lymphocytes % 25.3 % (21.8-53.1); Mean Cell Volume 84.8 fL (79.0-92.2); Mean Corpuscular Hemoglobin 28.1 pg (25.7-32.2); Mean Corpuscular Hgb Concent. 33.2 g/dL (32.3-36.5); Mean Platelet Volume 9.7 fL (9.4-12.4); Monocyte (Absolute #) 0.81 x10^3/uL (0.30-0.82); Monocytes % 12.8 % (5.3-12.2); Neutrophil % 56.5 % (34.0-67.9); Platelet Count 194 x10^3/uL (163-337); Red Cell Distribution Width 14.6 % (11.6-14.4); White Blood Count 6.3 x10^3/uL (4.23-9.07)
[2025-02-22 20:59] LABS: Appearance Clear (Clear); Bacteria None Seen /HPF (None Seen); Bilirubin Negative (Negative); Blood Negative (Negative); Epithelial Cells None Seen /HPF (None Seen); Glucose, Urine Negative (Negative); Hyaline Casts NONE SEEN /LPF (0-2); Ketones Negative (Negative); Leukocyte Esterase Negative (Negative); Nitrite Negative (Negative); Ph 6.5 (4.6-8.0); Protein,Urine Dip Negative (Negative); RBC 0-2 /HPF (0-5); Specific Gravity <=1.005 (1.005-1.030); Urobilinogen 0.2 mg/dL (0.2); WBC 0-2 /HPF (0-5)
[2025-02-22 21:06] LABS: ALBUMIN 4.3 g/dL (3.5-5.0); ANION GAP 13.1 MEQ/L (5-15); BILIRUBIN,TOTAL 0.6 mg/dL (0.2-1.3); Calcium 9.3 mg/dL (8.4-10.2); Creatinine 1 0.92 mg/dL (0.66-1.25); EST GLOMERULAR FILTRATION RATE 87.3 ML/MIN; Potassium 4.5 mmol/L (3.5-5.1); Total Protein 6.7 g/dL (6.3-8.2)
[2025-02-22] MEDS ORDERED: Coreg 3.125 MG ONE (23:44)
[2025-02-22] MEDS: Coreg 3.125 MG PO SCH (23:46)
[2025-02-23 00:46] VITALS: BP 178/106; PULSE 71; RESP 18; O2SAT 98
--- NOTE | 2025-02-23 08:41 | XRAY ---
Indication: Pain. Headache. High blood pressure. Multiple contiguous axial images obtained through the head without contrast. Comparison: None Age-appropriate global atrophy. Right basal ganglia demonstrates remote lacunar infarct. No acute intracranial hemorrhage, abnormal extra-axial fluid collection, or mass effect. Fourth ventricle is midline without hydrocephalus. Quiros-white matter differentiation preserved. Bony calvarium intact. Visualized paranasal sinuses and mastoid air cells are clear. Impression: Atrophy within normal limits. Right basal ganglia remote lacunar infarct. No acute intracranial abnormalities.
== END 2025-02-23 00:45 | disposition home or self-care (01) ==
LOC: ED 19:57
DX: I10 Essential (primary) hypertension (principal); R51.9 Headache, unspecified; Z79.899 Other long term (current) drug therapy
CPT/HCPCS: 36415; 70450; 80053; 81001; 83880; 84484; 85025; 93005; 93041; 94760; 99284; 99285; A9270-GY